=== PATIENT | male | born 1955 | race Caucasian/White ===

== ENCOUNTER → 2017-11-26 | Outpatient (CLI) | payer OTHER ==
[2017-11-26 11:42] LABS: Basophils # (auto) 0.1 uL; Eosinophils # (auto) 0.1 uL; Hemoglobin 17.7 g/dL (13.5-17.5); Monocytes # (auto) 0.8 uL
[2017-11-26 11:46] LABS: Basophils % (auto) 0.8 % (0.0-2.0); Eosinophils % (auto) 1.8 % (0.0-7.0); Hematocrit 51.3 % (41.0-53.0); Lymphocytes # (auto) 1.8 uL; Lymphocytes % (auto) 25.3 % (10.0-50.0); Mean Corpuscular Hemoglobin 31.4 pg (28.0-32.0); Mean Corpuscular Hgb Conc. 34.4 g/dL (32.0-36.0); Mean Corpuscular Volume 91.4 fL (80.0-100.0); Monocytes % (auto) 11.5 % (0.0-12.0); Neutrophils # (auto) 4.3 uL; Neutrophils % (auto) 60.6 % (37.0-80.0); Platelet Count (auto) 200 10^3/uL (140-450); Red Blood Cells 5.62 10^6/uL (4.5-5.90); Red Cell Distribution Width 13.8 % (11.8-14.3); White Blood Cell 7.1 10^3/uL (4.4-10.8)
[2017-11-26 12:07] LABS: Urine Bacteria NONE SEEN /hpf (None Seen); Urine Blood Negative /uL (Negative); Urine Mucus FEW (None Seen); Urine Specific Gravity 1.025 (1.001-1.035); Urine WBC 1 /hpf (0 - 3)
[2017-11-26 12:43] LABS: BUN/Creatinine Ratio 13.9; Bilirubin, Total 0.8 mg/dL (0.2-1.0); Calcium 9.3 mg/dL (8.5-10.1); Potassium 4.1 mmol/L (3.5-5.1); Total Protein 7.6 g/dL (6.4-8.2)
[2017-11-26 12:55] LABS: Prostate Specific Antigen 7.16 ng/mL (0.0-4.0)
== END | disposition home or self-care (01) ==
LOC: LAB 10:17
PROVIDERS: ATTEND Family Medicine
DX: I10 Essential (primary) hypertension (principal); E78.5 Hyperlipidemia, unspecified; R97.20 Elevated prostate specific antigen [PSA]; R79.89 Other specified abnormal findings of blood chemistry
CPT/HCPCS: 36415; 80053; 80061; 81001; 82306; 82607; 84153; 84154; 85025

== ENCOUNTER → 2018-03-12 | Outpatient (CLI) | payer OTHER ==
[~2018-03-12] MED LIST: AMLO5TAB2 PO; ASPI81TA27 PO; ATOR40TA52 PO; HYDR12.56 PO
== END | disposition home or self-care (01) ==
LOC: XY 08:19
PROVIDERS: ATTEND Urology
DX: C61 Malignant neoplasm of prostate (principal)
CPT/HCPCS: 78306; A9503

== ENCOUNTER → 2019-01-07 | Outpatient (CLI) | payer OTHER ==
[~2019-01-07] MED LIST changes: +AMLO5TAB13 PO; -AMLO5TAB2 PO
[2019-01-07 08:53] LABS: Basophils # (auto) 0 uL; Basophils % (auto) 0.8 % (0.0-2.0); Eosinophils # (auto) 0.1 uL; Eosinophils % (auto) 2.2 % (0.0-7.0); Hematocrit 50.5 % (41.0-53.0); Hemoglobin 17.1 g/dL (13.5-17.5); Lymphocytes % (auto) 18.2 % (10.0-50.0); Mean Corpuscular Hemoglobin 31.8 pg (28.0-32.0); Mean Corpuscular Hgb Conc. 33.9 g/dL (32.0-36.0); Mean Corpuscular Volume 93.9 fL (80.0-100.0); Monocytes # (auto) 0.6 uL; Monocytes % (auto) 10.2 % (0.0-12.0); Neutrophils % (auto) 68.6 % (37.0-80.0); Platelet Count (auto) 176 10^3/uL (140-450); Red Blood Cells 5.38 10^6/uL (4.5-5.90); Red Cell Distribution Width 13.7 % (11.8-14.3); White Blood Cell 5.8 10^3/uL (4.4-10.8)
[2019-01-07 09:09] LABS: Urine Bacteria NONE SEEN /hpf (None Seen); Urine Blood Negative /uL (Negative); Urine Mucus FEW (None Seen); Urine Specific Gravity 1.018 (1.001-1.035); Urine WBC 1 /hpf (0 - 3)
[2019-01-07 09:42] LABS: Albumin 4.2 g/dL (3.4-5.0); Calcium 9.5 mg/dL (8.5-10.1); Potassium 3.9 mmol/L (3.5-5.1)
[2019-01-07 09:46] LABS: BUN/Creatinine Ratio 14.4; Bilirubin, Total 0.7 mg/dL (0.2-1.0); Total Protein 7.5 g/dL (6.4-8.2)
[2019-01-07 14:54] LABS: Prostate Specific Antigen 0.12 ng/mL (0.0-4.0)
== END | disposition home or self-care (01) ==
LOC: LAB 08:02
PROVIDERS: ATTEND Family Medicine
DX: C61 Malignant neoplasm of prostate (principal); N40.1 Benign prostatic hyperplasia with lower urinary tract symptoms; E78.49 Other hyperlipidemia; I10 Essential (primary) hypertension
CPT/HCPCS: 36415; 80053; 80061; 81001; 82607; 83036; 84153; 84443; 85025

== ENCOUNTER → 2019-04-23 | Outpatient (CLI) | payer OTHER ==
[~2019-04-23] MED LIST changes: -AMLO5TAB13 PO; +AMLO5TAB15 PO; +ASPI-404 PO; -ASPI81TA27 PO
[2019-04-23 08:42] LABS: Basophils # (auto) 0.1 uL; Eosinophils # (auto) 0.2 uL; Eosinophils % (auto) 3.1 % (0.0-7.0); Hematocrit 42.2 % (41.0-53.0); Hemoglobin 14.5 g/dL (13.5-17.5); Lymphocytes # (auto) 1.2 uL; Lymphocytes % (auto) 22.7 % (10.0-50.0); Mean Corpuscular Hemoglobin 31.8 pg (28.0-32.0); Mean Corpuscular Hgb Conc. 34.3 g/dL (32.0-36.0); Mean Corpuscular Volume 92.6 fL (80.0-100.0); Monocytes # (auto) 0.6 uL; Monocytes % (auto) 11.7 % (0.0-12.0); Neutrophils # (auto) 3.3 uL; Neutrophils % (auto) 61.5 % (37.0-80.0); Platelet Count (auto) 176 10^3/uL (140-450); Red Blood Cells 4.56 10^6/uL (4.5-5.90); Red Cell Distribution Width 14.1 % (11.8-14.3); White Blood Cell 5.4 10^3/uL (4.4-10.8)
[2019-04-23 09:01] LABS: Albumin 3.8 g/dL (3.4-5.0); Calcium 8.8 mg/dL (8.5-10.1); Potassium 4.3 mmol/L (3.5-5.1)
[2019-04-23 09:03] LABS: Bilirubin, Total 0.5 mg/dL (0.2-1.0); Total Protein 7.3 g/dL (6.4-8.2)
== END | disposition home or self-care (01) ==
LOC: LAB 08:18
PROVIDERS: ATTEND Family Medicine
DX: C61 Malignant neoplasm of prostate (principal); E78.49 Other hyperlipidemia; I10 Essential (primary) hypertension
CPT/HCPCS: 36415; 80053; 82306; 84153; 85025

== ENCOUNTER → 2020-10-15 | Outpatient (CLI) | payer MEDICARE ==
[~2020-10-15] MED LIST changes: +AMLO-489 PO; -AMLO5TAB15 PO; -ASPI-404 PO; +ASPI-543 PO
[2020-10-15 09:28] LABS: Eosinophils # (auto) 0.2 10 ^3/uL (0-0.8); Hemoglobin 18.2 g/dL (13.5-17.5); Lymphocytes # (auto) 1.4 10 ^3/uL (0.4-5.4); Mean Corpuscular Hgb Conc. 34.7 g/dL (32.0-36.0); Monocytes # (auto) 0.7 10 ^3/uL (0-1.3); Neutrophils # (auto) 3.7 10 ^3/uL (1.6-8.6); Neutrophils % (auto) 60.7 % (37.0-80.0); Nucleated Red Blood Cells % 0.2 %; Red Cell Distribution Width 14.4 % (11.8-14.3); White Blood Cell 6.1 10^3/uL (4.4-10.8)
[2020-10-15 09:30] LABS: Basophils # (auto) 0.1 10 ^3/uL (0-0.2); Basophils % (auto) 1.2 % (0.0-2.0); Eosinophils % (auto) 2.9 % (0.0-7.0); Hematocrit 52.4 % (41.0-53.0); Lymphocytes % (auto) 23.7 % (10.0-50.0); Mean Corpuscular Hemoglobin 31.8 pg (28.0-32.0); Mean Corpuscular Volume 91.6 fL (80.0-100.0); Monocytes % (auto) 11.5 % (0.0-12.0); Platelet Count (auto) 204 10^3/uL (140-450); Red Blood Cells 5.72 10^6/uL (4.5-5.90)
[2020-10-15 10:13] LABS: Albumin 4.2 g/dL (3.4-5.0); Calcium 9.6 mg/dL (8.5-10.1); Potassium 4.7 mmol/L (3.5-5.1)
[2020-10-15 10:17] LABS: Bilirubin, Total 1.3 mg/dL (0.2-1.0)
[2020-10-15 10:19] LABS: Prostate Specific Antigen 0.14 ng/mL (0.0-4.0)
== END | disposition home or self-care (01) ==
LOC: LAB 09:09
PROVIDERS: ATTEND Family Medicine
DX: C61 Malignant neoplasm of prostate (principal); I10 Essential (primary) hypertension; E78.49 Other hyperlipidemia; E55.9 Vitamin D deficiency, unspecified
CPT/HCPCS: 36415; 80053; 80061; 82306; 82607; 84153; 85025

== ENCOUNTER → 2021-02-15 | Outpatient (CLI) | payer MEDICARE | END | disposition home or self-care (01) | LOC: LAB 10:12 | PROVIDERS: ATTEND Urology | DX: R35.1 Nocturia (principal); R35.0 Frequency of micturition; R32 Unspecified urinary incontinence | CPT/HCPCS: 84153 ==

== ENCOUNTER → 2021-06-17 | Outpatient (CLI) | payer MEDICARE ==
[2021-06-17 13:39] LABS: Albumin 3.8 g/dL (3.4-5.0); Bilirubin, Direct 0.3 mg/dL (0-0.2); Bilirubin, Total 0.8 mg/dL (0.2-1.0); Total Protein 7.1 g/dL (6.4-8.2)
== END | disposition home or self-care (01) ==
LOC: LAB 12:01
PROVIDERS: ATTEND Family Medicine
DX: R79.89 Other specified abnormal findings of blood chemistry (principal)
CPT/HCPCS: 36415; 80076; 86704; 86706; 86708; 86803; 87340

== ENCOUNTER → 2021-08-12 | Outpatient (CLI) | payer MEDICARE ==
[2021-08-12 09:51] LABS: Basophils # (auto) 0 10 ^3/uL (0-0.2); Basophils % (auto) 0.6 % (0.0-2.0); Eosinophils # (auto) 0.2 10 ^3/uL (0-0.8); Eosinophils % (auto) 2.9 % (0.0-7.0); Hematocrit 47.6 % (41.0-53.0); Hemoglobin 16.2 g/dL (13.5-17.5); Lymphocytes # (auto) 1.4 10 ^3/uL (0.4-5.4); Lymphocytes % (auto) 22.3 % (10.0-50.0); Mean Corpuscular Hemoglobin 31.5 pg (28.0-32.0); Mean Corpuscular Hgb Conc. 34.1 g/dL (32.0-36.0); Mean Corpuscular Volume 92.1 fL (80.0-100.0); Monocytes # (auto) 0.8 10 ^3/uL (0-1.3); Monocytes % (auto) 13.1 % (0.0-12.0); Neutrophils # (auto) 3.7 10 ^3/uL (1.6-8.6); Neutrophils % (auto) 61.1 % (37.0-80.0); Nucleated Red Blood Cells % 0.1 %; Red Blood Cells 5.16 10^6/uL (4.5-5.90); Red Cell Distribution Width 13.8 % (11.8-14.3); White Blood Cell 6.1 10^3/uL (4.4-10.8)
[2021-08-12 10:07] LABS: Albumin 3.9 g/dL (3.4-5.0); BUN/Creatinine Ratio 11.4; Calcium 8.9 mg/dL (8.5-10.1)
[2021-08-12 10:11] LABS: Bilirubin, Total 0.8 mg/dL (0.2-1.0); Total Protein 7.2 g/dL (6.4-8.2)
== END | disposition home or self-care (01) ==
LOC: LAB 09:00
PROVIDERS: ATTEND Student in an Organized Health Care Education/Training Program
DX: Z12.11 Encounter for screening for malignant neoplasm of colon (principal); Z00.00 Encounter for general adult medical examination without abnormal findings; E56.9 Vitamin deficiency, unspecified; E78.2 Mixed hyperlipidemia; I10 Essential (primary) hypertension; N40.1 Benign prostatic hyperplasia with lower urinary tract symptoms; Z79.899 Other long term (current) drug therapy
CPT/HCPCS: 36415; 80053; 80061; 83036; 84153; 84443; 85025

== ENCOUNTER → 2021-11-09 | Outpatient (CLI) | payer MEDICARE ==
[2021-11-09 11:09] LABS: Free T4 (Free Thyroxine) 0.91 ng/dL (0.89-1.76); Prostate Specific Antigen 0.13 ng/mL (0.0-4.0)
== END | disposition home or self-care (01) ==
LOC: LAB 10:10
PROVIDERS: ATTEND Urology
DX: N40.0 Benign prostatic hyperplasia without lower urinary tract symptoms (principal); Z79.899 Other long term (current) drug therapy
CPT/HCPCS: 36415; 84153; 84439; 84443

== ENCOUNTER → 2022-05-08 | Outpatient (CLI) | payer MEDICARE | END | disposition home or self-care (01) | LOC: LAB 12:02 | PROVIDERS: ATTEND Urology | DX: N40.0 Benign prostatic hyperplasia without lower urinary tract symptoms (principal) | CPT/HCPCS: 84153 ==

== ENCOUNTER → 2022-06-14 | Outpatient (CLI) | payer MEDICARE ==
[2022-06-14 12:12] LABS: Albumin 3.9 g/dL (3.4-5.0); Bilirubin, Total 0.8 mg/dL (0.2-1.0); Potassium 3.9 mmol/L (3.5-5.1); Total Protein 7.2 g/dL (6.4-8.2)
== END | disposition home or self-care (01) ==
LOC: LAB 10:55
PROVIDERS: ATTEND Student in an Organized Health Care Education/Training Program
DX: C61 Malignant neoplasm of prostate (principal); E78.2 Mixed hyperlipidemia; N40.0 Benign prostatic hyperplasia without lower urinary tract symptoms; I10 Essential (primary) hypertension; E03.9 Hypothyroidism, unspecified
CPT/HCPCS: 36415; 80053; 80061; 84443

== ENCOUNTER → 2022-06-26 | Outpatient (CLI) | payer MEDICARE | END | disposition home or self-care (01) | LOC: XYW 13:31 | PROVIDERS: ATTEND Student in an Organized Health Care Education/Training Program | DX: I51.7 Cardiomegaly (principal); R06.09 Other forms of dyspnea; R00.2 Palpitations | CPT/HCPCS: 93306 ==

== ENCOUNTER → 2022-08-10 | Outpatient (CLI) | payer MEDICARE | END | disposition home or self-care (01) | LOC: LAB 10:24 | PROVIDERS: ATTEND Student in an Organized Health Care Education/Training Program | DX: R94.6 Abnormal results of thyroid function studies (principal); Z12.11 Encounter for screening for malignant neoplasm of colon | CPT/HCPCS: 36415; 82274; 84443 ==

== ENCOUNTER → 2022-08-17 | Outpatient (CLI) | payer MEDICARE ==
[~2022-08-17] VITALS: Ht 30.5 cm; Wt 0.5 kg
[~2022-08-17] MED LIST changes: +TAMS1CAP25 PO; +cloNIDine HCL 0.1 MG TAB PO ONE; +hydrALAZINE HCL 20 MG/ML VL IV ONE
== END | disposition home or self-care (01) ==
LOC: XYW 08:10
PROVIDERS: ATTEND Internal Medicine
DX: R07.9 Chest pain, unspecified (principal)
CPT/HCPCS: 78452; 93017; A9500

== ENCOUNTER 2022-08-23 08:36 | Day surgery (SDC) | payer MEDICARE ==
[2022-08-22 10:45] LABS: Eosinophils # (auto) 0.1 10 ^3/uL (0-0.8); Hemoglobin 17.7 g/dL (13.5-17.5); Monocytes # (auto) 0.7 10 ^3/uL (0-1.3); White Blood Cell 6.5 10^3/uL (4.4-10.8)
[2022-08-22 10:47] LABS: Basophils # (auto) 0 10 ^3/uL (0-0.2); Basophils % (auto) 0.7 % (0.0-2.0); Eosinophils % (auto) 1.9 % (0.0-7.0); Hematocrit 51.7 % (41.0-53.0); Lymphocytes # (auto) 1.6 10 ^3/uL (0.4-5.4); Lymphocytes % (auto) 24.3 % (10.0-50.0); Mean Corpuscular Hemoglobin 31.1 pg (28.0-32.0); Mean Corpuscular Hgb Conc. 34.3 g/dL (32.0-36.0); Mean Corpuscular Volume 90.7 fL (80.0-100.0); Neutrophils % (auto) 62.1 % (37.0-80.0); Nucleated Red Blood Cells % 0.4 %; Red Cell Distribution Width 13.9 % (11.8-14.3)
[2022-08-22 10:52] LABS: INR 1.04 (0.9-1.15); Partial Thromboplastin Time 29.1 sec (24.6-33.4)
[2022-08-22 15:18] LABS: Potassium 3.8 mmol/L (3.5-5.1)
[2022-08-22 15:41] LABS: Albumin 4.5 g/dL (3.4-5.0); BUN/Creatinine Ratio 13.5; Total Protein 7.9 g/dL (6.4-8.2)
[~2022-08-23] VITALS: Ht 177.8 cm; Wt 98.0 kg
[2022-08-23] VITALS (12 sets, daily range): BP systolic 110–139; BP diastolic 67–88
[~2022-08-23 08:36] MED LIST changes: -HYDR12.56 PO; -cloNIDine HCL 0.1 MG TAB PO ONE; -hydrALAZINE HCL 20 MG/ML VL IV ONE
[2022-08-23] MEDS ORDERED: IODIXANOL 320MG/ML 100ML BTL IV ONE (10:03)
[2022-08-23] MEDS ORDERED: LIDOCAINE 2%HCL (LOCAL ANESTH.) INJ 10ml MDV ONE (10:04)
[2022-08-23] MEDS ORDERED: ANGIOMAX 250 MG VIAL IV ONE (10:05)
[2022-08-23] MEDS ORDERED: MIDAZOLAM HCL 2MG/2ML 2ml VIAL (1mg/ml) ONE (10:06)
[2022-08-23] MEDS ORDERED: fentaNYL CITRATE 100 MCG/2 ML VL ONE (10:06)
[2022-08-23] MEDS ORDERED: HEPARIN SODIUM (PORCINE) 5000 UNITS/ML 1ML VIAL ONE (10:06)
[2022-08-23] MEDS ORDERED: VERAPAMIL 2.5MG/ML INJ 2ML VIAL IV ONE (10:06)
[2022-08-23] MEDS ORDERED: SODIUM CHL 0.9% 0 ML ONE (10:07)
== END 2022-08-23 13:53 | disposition home or self-care (01) ==
LOC: CATH 08:36
PROVIDERS: ATTEND Internal Medicine
DX: R94.39 Abnormal result of other cardiovascular function study (principal); R00.2 Palpitations; R07.89 Other chest pain; Z20.822 Contact with and (suspected) exposure to COVID-19
CPT/HCPCS: 36415; 80053; 85025; 85610; 85730; 93458; C1769; C1887; C1894; J1644; J2001; J2250; J3010; Q9967; U0003; 99152

== ENCOUNTER → 2022-11-14 | Outpatient (CLI) | payer MEDICARE ==
[2022-11-14 14:53] LABS: Urine Bacteria NONE SEEN /hpf (None Seen); Urine Blood TRACE /uL (Negative); Urine Mucus FEW (None Seen); Urine Specific Gravity 1.027 (1.001-1.035); Urine WBC 13 /hpf (0 - 3)
== END | disposition home or self-care (01) ==
LOC: LAB 14:09
PROVIDERS: ATTEND Urology
DX: C61 Malignant neoplasm of prostate (principal); R35.0 Frequency of micturition; N29 Other disorders of kidney and ureter in diseases classified elsewhere
CPT/HCPCS: 81001; 84153; 87086

== ENCOUNTER → 2022-12-05 | Outpatient (CLI) | payer MEDICARE ==
[2022-12-05 14:09] LABS: Potassium 3.9 mmol/L (3.5-5.1)
[2022-12-05 14:16] LABS: BUN/Creatinine Ratio 11.4 (10.0-20.0); Calcium 8.8 mg/dL (8.5-10.1)
== END | disposition home or self-care (01) ==
LOC: LAB 13:22
PROVIDERS: ATTEND Urology
DX: C61 Malignant neoplasm of prostate (principal); R33.9 Retention of urine, unspecified
CPT/HCPCS: 36415; 80048

== ENCOUNTER → 2023-11-16 | Day surgery (SDC) | payer MEDICARE ==
[2023-11-13 11:04] LABS: Basophils # (auto) 0.1 10 ^3/uL (0-0.2); Basophils % (auto) 1.1 % (0.0-2.0); Eosinophils # (auto) 0.2 10 ^3/uL (0-0.8); Eosinophils % (auto) 3.1 % (0.0-7.0); Hematocrit 50.9 % (41.0-53.0); Hemoglobin 17.3 g/dL (13.5-17.5); Lymphocytes # (auto) 1.7 10 ^3/uL (0.4-5.4); Mean Corpuscular Hemoglobin 31.4 pg (28.0-32.0); Mean Corpuscular Volume 92.2 fL (80.0-100.0); Monocytes # (auto) 0.8 10 ^3/uL (0-1.3); Neutrophils # (auto) 4.1 10 ^3/uL (1.6-8.6); Neutrophils % (auto) 59.8 % (37.0-80.0); Nucleated Red Blood Cells % 0.1 %; Red Blood Cells 5.52 10^6/uL (4.5-5.90); White Blood Cell 6.9 10^3/uL (4.4-10.8)
[2023-11-13 11:29] LABS: INR 1.08 (0.9-1.15); Partial Thromboplastin Time 27.3 SEC (24.5-34.5); Prothrombin Time 11.4 sec (9.3-11.8)
[2023-11-13 11:48] LABS: Alanine Aminotransferase 35 U/L (7-40); Albumin 4.5 g/dL (3.2-4.8); Alkaline Phosphatase 87 U/L (46-116); Aspartate Aminotransferase 21 U/L (13-40); BUN/Creatinine Ratio 9.7 (10.0-20.0); Bilirubin, Total 1.1 mg/dL (0.2-1.0); Blood Urea Nitrogen 10 mg/dL (9-23); Calcium 9.6 mg/dL (8.7-10.4); Carbon Dioxide 27 mmol/L (20-30); Glucose 90 mg/dL (74-106); Total Protein 7.1 g/dL (5.7-8.2)
[2023-11-13 11:51] LABS: Anion Gap 5 (5-15); Chloride 106 mmol/L (98-107); Potassium 4.1 mmol/L (3.5-5.1); Sodium 138 mmol/L (136-145)
[~2023-11-16] VITALS: Ht 177.8 cm; Wt 104.3 kg
[~2023-11-16] MED LIST changes: -AMLO-489 PO; +AMLO1TAB22 PO; +METO25TA93 PO; +MIDAZOLAM HCL 5 MG/ML-1ML VIAL ONE; +diphenhdrAMINE HCL 50 MG/1 ML VL ONE; +fentaNYL CITRATE 100 MCG/2 ML VL ONE
[2023-11-16] MEDS: MIDAZOLAM HCL 5 MG/ML-1ML VIAL IV ONE (14:46)
[2023-11-16 15:10] VITALS: TEMP 98; O2SAT 100
[2023-11-16 15:40] VITALS: BP 117/82; PULSE 68; RESP 13; O2SAT 94
== END | disposition home or self-care (01) ==
LOC: GI 11:45
PROVIDERS: ATTEND Internal Medicine Gastroenterology
DX: R10.30 Lower abdominal pain, unspecified (principal); D12.3 Benign neoplasm of transverse colon; R10.84 Generalized abdominal pain; K57.30 Diverticulosis of large intestine without perforation or abscess without bleeding; I10 Essential (primary) hypertension; E78.00 Pure hypercholesterolemia, unspecified; F17.210 Nicotine dependence, cigarettes, uncomplicated; Z79.82 Long term (current) use of aspirin; Z79.899 Other long term (current) drug therapy; Z85.46 Personal history of malignant neoplasm of prostate; Z98.890 Other specified postprocedural states
CPT/HCPCS: 36415; 45385; 80053; 85025; 85610; 85730; 88305; J1200; J2250; J3010

== ENCOUNTER → 2024-02-07 | Day surgery (SDC) | payer MEDICARE ==
[2024-02-06 11:04] LABS: Urine Bacteria None Seen /hpf (None Seen)
[2024-02-06 11:07] LABS: Basophils # (auto) 0.1 10 ^3/uL (0-0.2); Basophils % (auto) 1.5 % (0.0-2.0); Eosinophils # (auto) 0.2 10 ^3/uL (0-0.8); Eosinophils % (auto) 2.6 % (0.0-7.0); Hematocrit 47.3 % (41.0-53.0); Hemoglobin 16.3 g/dL (13.5-17.5); Lymphocytes # (auto) 1.9 10 ^3/uL (0.4-5.4); Lymphocytes % (auto) 26.8 % (10.0-50.0); Mean Corpuscular Hemoglobin 31.5 pg (28.0-32.0); Mean Corpuscular Hgb Conc. 34.4 g/dL (32.0-36.0); Mean Corpuscular Volume 91.4 fL (80.0-100.0); Monocytes # (auto) 0.7 10 ^3/uL (0-1.3); Monocytes % (auto) 10.6 % (0.0-12.0); Neutrophils # (auto) 4.1 10 ^3/uL (1.6-8.6); Neutrophils % (auto) 58.5 % (37.0-80.0); Nucleated Red Blood Cells % 0.2 %; Red Blood Cells 5.18 10^6/uL (4.5-5.90); Red Cell Distribution Width 14.4 % (11.8-14.3); White Blood Cell 6.9 10^3/uL (4.4-10.8)
[2024-02-06 11:23] LABS: Urine Blood 3+ /uL (Negative); Urine Clarity Ex.Turbid (Clear); Urine Color Light-Orange (Yellow); Urine Mucus FEW (None Seen); Urine Protein, UAD 2+ (Negative); Urine Urobilinogen Normal (Negative); Urine WBC 72 /hpf (0 - 3); Urine WBC Clumps PRESENT /hpf (None Seen)
[2024-02-06 11:31] LABS: INR 1.04 (0.9-1.15); Partial Thromboplastin Time 27.3 SEC (24.5-34.5)
[2024-02-06 12:11] LABS: Alanine Aminotransferase 31 U/L (7-40); Albumin 4.4 g/dL (3.2-4.8); Alkaline Phosphatase 88 U/L (46-116); Anion Gap 6 (5-15); Aspartate Aminotransferase 15 U/L (13-40); BUN/Creatinine Ratio 10.7 (10.0-20.0); Blood Urea Nitrogen 11 mg/dL (9-23); Calcium 9.5 mg/dL (8.7-10.4); Carbon Dioxide 25 mmol/L (20-30); Chloride 108 mmol/L (98-107); Glucose 91 mg/dL (74-106); Potassium 4.1 mmol/L (3.5-5.1); Sodium 139 mmol/L (136-145)
[2024-02-06 12:12] LABS: Bilirubin, Total 1.1 mg/dL (0.2-1.0)
[~2024-02-07] VITALS: Ht 177.8 cm; Wt 98.4 kg
[~2024-02-07] MED LIST changes: +ASPI-498 OR; +CEPH250C PO; +DexAMETHasone SOD PHOS 10MG/1ML VIAL INJ ONE; +GLYCOPYRROLATE 0.2 MG/ML 1ML VIAL ONE; +HYDR1TAB97 PO; +HYDROmorphone HCL 2 MG/ML VL/or syr IV PRN; +HYDROmorphone HCL 2 MG/ML VL/or syr ONE; +KETAMINE 50mg/ML 1ml syringe ONE; +KETOROLAC TROMETH 30 MG/ML 1ML VIAL ONE; +LIDOCAINE 2% (LOCAL ANESTH.) PF 5ml SDV ONE; +MEPERIDINE HCL (50 MG/ML) 1 ML VIAL ONE; +MIDAZOLAM HCL 2MG/2ML 2ml VIAL (1mg/ml) ONE; -MIDAZOLAM HCL 5 MG/ML-1ML VIAL ONE; +ONDANSETRON HCL 4 MG/2 ML VIAL ONE; +PROPOFOL 10 MG/ML 20 ML IV ONE; +ROCURONIUM 10MG/ML 10ML VIAL IV ONE; +SUGAMMADEX 200mg/2ml Vial (100MG/ML) IV ONE; -diphenhdrAMINE HCL 50 MG/1 ML VL ONE; +ePHEDrine SULFATE 50 MG/ML AMP ONE
[2024-02-07] MEDS: EPINEPHrine HCL 1 MG/1 ML AMP ONE (10:45)
[2024-02-07 12:41] VITALS: TEMP 98.1
[2024-02-07] MEDS: ROPIVACAINE 0.5% (5MG/ML) 20ML AMPULE IJ ONE (15:16)
[2024-02-07] MEDS: BUPIVACAINE 0.5% MPF INJ 30ML SDV IJ ONE (15:16)
[2024-02-07] MEDS: ceFAZolin 2 GM/D5W50ml 50 ML IV ONE (15:16)
[2024-02-07] MEDS: LIDOCAINE 2% JELLY 11ml (GLYDO) ONE (15:17)
[2024-02-07] MEDS: ONDANSETRON HCL 4 MG/2 ML VIAL IV ONE (15:57)
[2024-02-07 16:25] VITALS: BP 108/72; PULSE 73; RESP 15; O2SAT 95
== END | disposition home or self-care (01) ==
LOC: SUR 07:10
PROVIDERS: ATTEND Orthopaedic Surgery Sports Medicine
DX: M75.121 Complete rotator cuff tear or rupture of right shoulder, not specified as traumatic (principal); S46.211A Strain of muscle, fascia and tendon of other parts of biceps, right arm, initial encounter; M65.811 Other synovitis and tenosynovitis, right shoulder; M25.811 Other specified joint disorders, right shoulder; M94.211 Chondromalacia, right shoulder; X58.XXXA Exposure to other specified factors, initial encounter; Y93.89 Activity, other specified; Y92.89 Other specified places as the place of occurrence of the external cause; Y99.8 Other external cause status; I10 Essential (primary) hypertension; F17.210 Nicotine dependence, cigarettes, uncomplicated; Z79.899 Other long term (current) drug therapy; Z85.46 Personal history of malignant neoplasm of prostate; Z98.890 Other specified postprocedural states
CPT/HCPCS: 29826; 29827; 29828; 36415; 80053; 81001; 85025; 85610; 85730; C1713; J0171; J0690; J1100; J1170; J1885; J2001; J2175; J2250; J2405; J2704; J2795; J3010; A4565; J3490

== ENCOUNTER → 2024-08-08 | Day surgery (SDC) | payer MEDICARE ==
[2024-08-05 15:33] LABS: Basophils # (auto) 0.1 10 ^3/uL (0-0.2); Basophils % (auto) 0.9 % (0.0-2.0); Eosinophils # (auto) 0.2 10 ^3/uL (0-0.8); Eosinophils % (auto) 2.1 % (0.0-7.0); Hematocrit 47.8 % (41.0-53.0); Hemoglobin 16.4 g/dL (13.5-17.5); Lymphocytes # (auto) 1.8 10 ^3/uL (0.4-5.4); Lymphocytes % (auto) 22.1 % (10.0-50.0); Mean Corpuscular Hemoglobin 31.8 pg (28.0-32.0); Mean Corpuscular Hgb Conc. 34.4 g/dL (32.0-36.0); Mean Corpuscular Volume 92.4 fL (80.0-100.0); Monocytes % (auto) 12.4 % (0.0-12.0); Neutrophils % (auto) 62.5 % (37.0-80.0); Nucleated Red Blood Cells % 0.1 %; Platelet Count (auto) 196 10^3/uL (140-450); Red Blood Cells 5.18 10^6/uL (4.5-5.90)
[2024-08-05 15:47] LABS: INR 1.03 (0.9-1.15); Partial Thromboplastin Time 27.2 SEC (24.5-34.5); Prothrombin Time 10.9 sec (9.3-11.8)
[2024-08-05 15:48] LABS: Alanine Aminotransferase 34 U/L (7-40); Albumin 4.6 g/dL (3.2-4.8); Alkaline Phosphatase 100 U/L (46-116); Anion Gap 7 (5-15); Aspartate Aminotransferase 20 U/L (13-40); BUN/Creatinine Ratio 11.3 (10.0-20.0); Bilirubin, Total 0.7 mg/dL (0.2-1.0); Blood Urea Nitrogen 12 mg/dL (9-23); Calcium 9.9 mg/dL (8.7-10.4); Carbon Dioxide 27 mmol/L (20-31); Potassium 4.2 mmol/L (3.5-5.1); Sodium 144 mmol/L (136-145); Total Protein 6.9 g/dL (5.7-8.2)
[2024-08-05 15:53] LABS: Chloride 110 mmol/L (98-107); Glucose 74 mg/dL (74-106)
[~2024-08-08] VITALS: Ht 177.8 cm; Wt 99.8 kg
[~2024-08-08] MED LIST changes: -ASPI-498 OR; -CEPH250C PO; -DexAMETHasone SOD PHOS 10MG/1ML VIAL INJ ONE; -GLYCOPYRROLATE 0.2 MG/ML 1ML VIAL ONE; -HYDR1TAB97 PO; -HYDROmorphone HCL 2 MG/ML VL/or syr IV PRN; -HYDROmorphone HCL 2 MG/ML VL/or syr ONE; -KETAMINE 50mg/ML 1ml syringe ONE; -KETOROLAC TROMETH 30 MG/ML 1ML VIAL ONE; -LIDOCAINE 2% (LOCAL ANESTH.) PF 5ml SDV ONE; -MEPERIDINE HCL (50 MG/ML) 1 ML VIAL ONE; -MIDAZOLAM HCL 2MG/2ML 2ml VIAL (1mg/ml) ONE; -ONDANSETRON HCL 4 MG/2 ML VIAL ONE; -PROPOFOL 10 MG/ML 20 ML IV ONE; -ROCURONIUM 10MG/ML 10ML VIAL IV ONE; +SODIUM CHLORIDE LOCK 10 ML ONE; -SUGAMMADEX 200mg/2ml Vial (100MG/ML) IV ONE; -ePHEDrine SULFATE 50 MG/ML AMP ONE; -fentaNYL CITRATE 100 MCG/2 ML VL ONE
[2024-08-08 10:50] VITALS: PULSE 55; RESP 17; O2SAT 98
[2024-08-08] MEDS: LIDOCAINE VISCOUS 2% 15ML UD ONE (11:13)
[2024-08-08] MEDS: fentaNYL CITRATE 100 MCG/2 ML VL ONE (11:13)
[2024-08-08] MEDS: diphenhdrAMINE HCL 50 MG/1 ML VL ONE (11:13)
[2024-08-08] MEDS: MIDAZOLAM HCL 5 MG/ML-1ML VIAL ONE (11:13)
--- NOTE | 2024-08-08 11:28 | DVHOP2 ---
Operative Report DATE OF OPERATION: 08/08/24 PROCEDURE: Upper Endoscopy with biopsy. PREOPERATIVE INDICATION: The patient is a 69 -year-old male undergoing endoscopy for chronic GERD POSTOPERATIVE DIAGNOSES: 1. 1-2 cm sliding-type hiatal hernia with grade a erosive esophagitis 2. Mild antral gastritis with some hyperemia erythema 3. Moderate duodenitis with multiple duodenal erosions and tiny ulcers in the duodenal bulb and postbulbar area PROCEDURE PERFORMED BY: Lia Leyva GI NURSE: Jaci SCOPE: Olympus videoendoscope. ASA CLASS: 2. PREOPERATIVE MEDICATIONS: Versed 2 mg, Fentanyl 75 mcg, Benadryl 50 mg I administered moderate sedation throughout this _9_ minutes procedure. An independent trained observer pushed medications at my direction, and monitored the patient's level of consciousness and physiological status throughout. PROCEDURE IN DETAIL: After obtaining an informed consent, the patient was placed on left lateral decubitus position. The patient was then sedated with the above medications. A bite block was placed between his teeth. The endoscope was then passed through the oropharynx, into the esophagus, and through the stomach and pylorus up to the second and third part of the duodenum. The endoscope was then withdrawn. The 2nd and 3rd part of the duodenum. Duodenal bulb and postbulbar area showed [id number] duodenitis There were superficial tiny ulcers and erosions. The pre-pyloric area antrum and body showed mild gastritis. On retroflexion the fundus cardia and angularis were normal. Duodenal and gas tric biopsies were obtained. The endoscope was then withdrawn into the distal esophagus where he had a 1-2 cm sliding-type hiatal hernia. Patient had slightly irregular squamocolumnar junction minimal grade a erosive esophagitis. The remaining distal and proximal esophagus and oropharynx were unremarkable The patient tolerated the procedure well without difficulty. COMPLICATIONS : None SPECIMENS: Duodenal biopsies Gastric biopsies GE junction biopsies DISPOSITION: Stable D/C to home PLAN: 1. Await for biopsy result 2. Will place pt on Protonix 40 mg p.o. daily 3. Resume GI soft diet advance as tolerated 4. Outpatient follow up with me in 4-6 weeks to review results and discuss further management 5. DC aspirin NSAIDs smoking alcohol and lifestyle modifications for GERD LIA LEYVA MD Aug 08, 2024 11:28
[2024-08-08 11:30] VITALS: PULSE 55; RESP 15; TEMP 97.5; O2SAT 99
[2024-08-08 12:00] VITALS: BP 120/73; PULSE 57; RESP 16; O2SAT 96
== END | disposition home or self-care (01) ==
LOC: GI 08:54
PROVIDERS: ATTEND Internal Medicine Gastroenterology
DX: K29.50 Unspecified chronic gastritis without bleeding (principal); K21.00 Gastro-esophageal reflux disease with esophagitis, without bleeding; K22.10 Ulcer of esophagus without bleeding; K26.9 Duodenal ulcer, unspecified as acute or chronic, without hemorrhage or perforation; K29.80 Duodenitis without bleeding; K44.9 Diaphragmatic hernia without obstruction or gangrene; F17.200 Nicotine dependence, unspecified, uncomplicated; E78.00 Pure hypercholesterolemia, unspecified; I10 Essential (primary) hypertension; Z79.899 Other long term (current) drug therapy; Z98.890 Other specified postprocedural states
CPT/HCPCS: 36415; 43239; 80053; 85025; 85610; 85730; 88305; 88312; 88342; J1200; J2250; J3010; J7030

== ENCOUNTER → 2024-09-29 | Outpatient (CLI) | payer MEDICARE ==
[~2024-09-29] MED LIST changes: -SODIUM CHLORIDE LOCK 10 ML ONE
[2024-09-29 14:26] LABS: Basophils # (auto) 0.1 10 ^3/uL (0-0.2); Basophils % (auto) 0.8 % (0.0-2.0); Eosinophils # (auto) 0.2 10 ^3/uL (0-0.8); Eosinophils % (auto) 2.2 % (0.0-7.0); Hematocrit 50.6 % (41.0-53.0); Hemoglobin 17.5 g/dL (13.5-17.5); Lymphocytes % (auto) 28.7 % (10.0-50.0); Mean Corpuscular Hemoglobin 31.8 pg (28.0-32.0); Mean Corpuscular Hgb Conc. 34.6 g/dL (32.0-36.0); Mean Corpuscular Volume 91.9 fL (80.0-100.0); Monocytes # (auto) 0.7 10 ^3/uL (0-1.3); Monocytes % (auto) 10.4 % (0.0-12.0); Neutrophils # (auto) 4.1 10 ^3/uL (1.6-8.6); Neutrophils % (auto) 57.9 % (37.0-80.0); Nucleated Red Blood Cells % 0.1 %; Platelet Count (auto) 193 10^3/uL (140-450); Red Cell Distribution Width 13.8 % (11.8-14.3); White Blood Cell 7.1 10^3/uL (4.4-10.8)
[2024-09-29 14:39] LABS: Urine Bacteria FEW /hpf (None Seen); Urine Blood 3+ /uL (Negative); Urine Clarity Turbid (Clear); Urine Color Light-Orange (Yellow); Urine Mucus FEW (None Seen); Urine Protein, UAD 1+ (Negative); Urine Specific Gravity 1.022 (1.001-1.035); Urine Squamous Epithelial Cell None Seen /hpf (<5); Urine Urobilinogen Normal (Negative); Urine WBC 23 /HPF (0-3)
[2024-09-29 14:51] LABS: Alkaline Phosphatase 90 U/L (46-116); Anion Gap 6 (5-15); Aspartate Aminotransferase 31 U/L (13-40); BUN/Creatinine Ratio 8.5 (10.0-20.0); Blood Urea Nitrogen 9 mg/dL (9-23); Calcium 9.8 mg/dL (8.7-10.4); Carbon Dioxide 28 mmol/L (20-31); Chloride 106 mmol/L (98-107); Cholesterol 118 mg/dL (< 200); Glucose 89 mg/dL (74-106); LDL Cholesterol 62 mg/dL (< 100); Potassium 4.5 mmol/L (3.5-5.1); Sodium 140 mmol/L (136-145); Total Protein 7.5 g/dL (5.7-8.2); Triglycerides 116 mg/dL (< 150)
[2024-09-29 14:55] LABS: Alanine Aminotransferase 49 U/L (7-40); Albumin 4.9 g/dL (3.2-4.8); HDL Cholesterol 37 mg/dL (40-59)
== END | disposition home or self-care (01) ==
LOC: LAB 13:52
PROVIDERS: ATTEND Nurse Practitioner
DX: I10 Essential (primary) hypertension (principal); E78.5 Hyperlipidemia, unspecified; E03.9 Hypothyroidism, unspecified; R73.9 Hyperglycemia, unspecified; Z85.46 Personal history of malignant neoplasm of prostate
CPT/HCPCS: 36415; 80053; 80061; 81001; 83036; 84153; 84443; 85025

== ENCOUNTER → 2024-10-08 | Outpatient (CLI) | payer MEDICARE | END | disposition home or self-care (01) | LOC: LAB 10:00 | PROVIDERS: ATTEND Internal Medicine Gastroenterology | DX: N39.0 Urinary tract infection, site not specified (principal) | CPT/HCPCS: 87086 ==

== ENCOUNTER 2024-10-30 07:57 | Day surgery (SDC) | payer MEDICARE ==
[2024-10-28 14:43] LABS: Urine Bacteria None Seen /hpf (None Seen)
[2024-10-28 14:47] LABS: Urine Blood 3+ /uL (Negative); Urine Clarity Turbid (Clear); Urine Color Yellow (Yellow); Urine Mucus FEW (None Seen); Urine Protein, UAD 1+ (Negative); Urine Specific Gravity 1.019 (1.001-1.035); Urine Squamous Epithelial Cell FEW /hpf (<5); Urine Urobilinogen Normal (Negative); Urine WBC 8 /HPF (0-3); Urine pH 5.5 (5.0-9.0)
[2024-10-28 14:54] LABS: Basophils # (auto) 0.1 10 ^3/uL (0-0.2); Basophils % (auto) 1.1 % (0.0-2.0); Eosinophils # (auto) 0.2 10 ^3/uL (0-0.8); Eosinophils % (auto) 2.8 % (0.0-7.0); Hematocrit 50.2 % (41.0-53.0); Hemoglobin 16.9 g/dL (13.5-17.5); Lymphocytes # (auto) 1.4 10 ^3/uL (0.4-5.4); Mean Corpuscular Hemoglobin 30.9 pg (28.0-32.0); Mean Corpuscular Hgb Conc. 33.6 g/dL (32.0-36.0); Mean Corpuscular Volume 91.9 fL (80.0-100.0); Monocytes # (auto) 0.7 10 ^3/uL (0-1.3); Monocytes % (auto) 11.6 % (0.0-12.0); Neutrophils # (auto) 3.9 10 ^3/uL (1.6-8.6); Neutrophils % (auto) 62.5 % (37.0-80.0); Nucleated Red Blood Cells % 0.1 %; Platelet Count (auto) 195 10^3/uL (140-450); Red Blood Cells 5.47 10^6/uL (4.5-5.90); Red Cell Distribution Width 13.8 % (11.8-14.3); White Blood Cell 6.3 10^3/uL (4.4-10.8)
[2024-10-28 15:10] LABS: Alanine Aminotransferase 52 U/L (7-40); Albumin 4.5 g/dL (3.2-4.8); Alkaline Phosphatase 80 U/L (46-116); Anion Gap 4 (5-15); Aspartate Aminotransferase 30 U/L (13-40); BUN/Creatinine Ratio 7.1 (10.0-20.0); Bilirubin, Total 0.6 mg/dL (0.2-1.0); Blood Urea Nitrogen 8 mg/dL (9-23); Calcium 9.5 mg/dL (8.7-10.4); Carbon Dioxide 30 mmol/L (20-31); Chloride 106 mmol/L (98-107); Glucose 91 mg/dL (74-106); INR 1.03 (0.9-1.15); Partial Thromboplastin Time 28.8 SEC (24.5-34.5); Potassium 4.4 mmol/L (3.5-5.1); Prothrombin Time 10.9 sec (9.3-11.8); Sodium 140 mmol/L (136-145); Total Protein 7.1 g/dL (5.7-8.2)
[~2024-10-30] VITALS: Ht 177.8 cm; Wt 97.5 kg
[~2024-10-30 07:57] MED LIST changes: -ASPI-543 PO; +DICY-89 PO; +PANT40TA2 PO
[2024-10-30] MEDS ORDERED: IOHEXOL 300 MG/ML 100ML BOTTLE IJ ONE (10:47)
[2024-10-30] MEDS ORDERED: SUCCINYLCHOLINE CHLORIDE 20 MG/ML 10ML VIAL IV ONE (10:51)
[2024-10-30] MEDS ORDERED: ONDANSETRON HCL 4 MG/2 ML VIAL ONE (10:52)
[2024-10-30] MEDS ORDERED: MIDAZOLAM HCL 2MG/2ML 2ml VIAL (1mg/ml) ONE (10:52)
[2024-10-30] MEDS ORDERED: LIDOCAINE 2% (LOCAL ANESTH.) PF 5ml SDV ONE (10:52)
[2024-10-30] MEDS ORDERED: fentaNYL CITRATE 100 MCG/2 ML VL ONE ×2 (10:52→11:20)
[2024-10-30] MEDS ORDERED: DexAMETHasone SOD PHOS 10MG/1ML VIAL INJ ONE (10:52)
[2024-10-30] MEDS ORDERED: PROPOFOL 10 MG/ML 20 ML IV ONE (10:52)
[2024-10-30] MEDS ORDERED: ceFAZolin 1GM VL ONE (11:11)
[2024-10-30] MEDS ORDERED: GLYCOPYRROLATE 0.2 MG/ML 1ML VIAL ONE (11:41)
--- NOTE | 2024-10-30 11:48 | DVHNC2 ---
Procedure - OPERATIVE REPORT Pre-op. Diagnosis: 1.2 cm left lower pole renal stone gross hematuria BPH history of prostate cancer status post radiation therapy Post-op. Diagnosis: bladder cancer/tumor left nephrolithiasis BPH Operation: cystoscopy with left ureteral stent placement extracorporeal shockwave lithotripsy trans urethral resection of bladder tumor Anesthesia: General Indications: Patient was found to have symptomatic Urolithiasis. Patient is here to undergo ESWL therapy. Informed Consent: The procedure was explained to the patient. It's risks include but not limited to infection, bleeding, and damage to the kidney. Patient fully understood and signed the consent. Other options such as watchful waiting, Ureteroscopy, Percutaneous surgery and open surgery were also discussed. Details of Procedure: Under satisfactory anesthesia, the patient was positioned on the lithotripsy table in the lithotomy position. Cystoscopy was performed with findings of mild urethral stricture that was dilated with the cystoscope. Prostatic urethra shows slight coaptation and high be median bar prostate. Bladder mucosa was evaluated with findings of posterior diverticulum, multiple cellules and a large 5 cm right trigone bladder tumor. The tumor was involving the right ureteric orifice. I elected to place a left ureteral stent because of the size of the stone but also because the tumor involvement of the right ureteric orifice. A five [place] by 26 cm polaris loop ureteral stent was placed over guidewire on the left side with proper position verified on fluoroscopy and cystoscopy. The tumor was then resected using the trans urethral resectoscope ( 26 [place]) using the normal saline irrigation and bipolar cautery urine. Specimen are sent to pathology for evaluation. Resectoscope was removed in entirety and a Shirley catheter was inserted. Using fluoroscopy the stone was localized. Starting at low energy levels, shockwave treatment was commenced. The energy level was gradually increased and stone was fragmented. Once the treatment was completed, patient was then taken off the lithotripsy table and sent to recovery room in stable condition. Specimens: None Complications: None Findings: Stone Laterality:Left nephrolithiasis measuring 1.2 cm Stone Location: lower pole Shocks Delivered: 2400 shocks Max Power settin Fragmentation Quality: Well large 5 cm bladder tumor noted on the right side of the trigone involving the ur eteric orifice of the right side. Complete resection was done. Notes: Shirley catheter removal on postop day 1. PILI REBOLLEDO MD Oct 30, 2024 11:48
--- NOTE | 2024-10-30 11:50 | DVHDS2 ---
New Physician D'charge PN Admitting Diagnosis Admitting Diagnosis Left renal lithiasis Gross hematuria BPH Discharge Diagnosis Large bladder tumor Operations or Procedures Trans urethral resection of the bladder tumor Cystoscopy with left ureteral stent placement Left extracorporeal shockwave lithotripsy Reason(s) For Hospitalization Surgery Hospital Course The findings of the bladder cancer was incidental. Given the intraoperative findings and the need for resection, the surgery was performed for the interest of the patient's safety without waking the patient up and obtaining another consent. Treatment Plan Discharge Complications None Condition of Discharge Fair Disposition Home Discharge Instructions Diet: Regular Activity: Light activity Activity comment: Shirley catheter care Medications: Given Follow Up Care Follow Up/Referral: Voiding trial on postop day 1. Discharge Statement: "Patient was advised to return to the ER or call 911 if any headaches, dizziness, shortness of breath, chest pain, abdominal pain, bleeding, fevers, or worsening of medical condition. Patient was counseled about treatment plan, medications, possible side effects, patientverbalized understanding. All questions were answered to the best of my ability. This discharge took greater then 30 minutes in planning, reviewing documentation, counseling the patient, and discussing with other team members." PILI REBOLLEDO MD Oct 30, 2024 11:50
[2024-10-30 12:19] VITALS: PULSE 71; RESP 19; O2SAT 98
[2024-10-30] MEDS ORDERED: FUROSEMIDE 20 MG/2 ML VIAL ONE (12:34)
[2024-10-30] MEDS: FUROSEMIDE 20 MG/2 ML VIAL IV ONE (12:36)
[2024-10-30 13:54] VITALS: BP 134/77; PULSE 66; RESP 14; O2SAT 98
== END 2024-10-30 13:55 | disposition home or self-care (01) ==
LOC: SUR 07:57
PROVIDERS: ATTEND Urology
DX: N20.0 Calculus of kidney (principal); C67.0 Malignant neoplasm of trigone of bladder; N35.919 Unspecified urethral stricture, male, unspecified site; N40.0 Benign prostatic hyperplasia without lower urinary tract symptoms; R31.0 Gross hematuria; F17.210 Nicotine dependence, cigarettes, uncomplicated; Z79.82 Long term (current) use of aspirin; Z79.899 Other long term (current) drug therapy
CPT/HCPCS: 36415; 50590; 52235; 52332; 80053; 81001; 85025; 85610; 85730; 87086; 88307; A4315; A4344; C1769; C2617; J0330; J0690; J1100; J1940; J2003; J2250; J2405; J2704; J3010; J7030

== ENCOUNTER 2024-10-31 22:07 | Inpatient (IN) | payer MEDICARE ==
[~2024-10-31] VITALS: Ht 177.8 cm; Wt 98.2 kg
[2024-10-31] MEDS: HYDROmorphone HCL 2 MG/ML VL/or syr IM ONE (23:23)
[2024-10-31] MEDS: KETOROLAC TROMETH 60MG/2ML VIAL IM ONE (23:24)
--- NOTE | 2024-10-31 23:54 | DVH ---
Exam: CT AB PEL WO CON-NO ORAL OR IV History: Right-sided flank pain Comparison Study: [facility]IDC on DOS: 06/26/22 Contrast: None TECHNIQUE: Multidetector CT of abdomen and pelvis without IV contrast. Radiation Dose Information: CT Dose: CTDI volume is 16.25 mGy. Dose-length product is 1018.75 mGy*cm FINDINGS: Lung bases are clear. Heart size is normal. There are calcifications in the coronary arteries ascending aorta is enlarged measuring 5.05 cm lower esophagus is unremarkable. Spleen and liver are grossly unremarkable. Gallbladder is normal bilateral perinephric stranding ther e is a dense nodule dense cyst arising from the posterior left renal cortex patient has nephrostomy t ube in the collecting system of the left kidney in the distal end is in the bladder there is a Shirley catheter in the bladder patient has peripheral calcifications in the posterior prostate the appendix is normal. There is no evidence for gastrointestinal obstruction. There is bilateral perinephric str anding there is right hydronephrosis and hydroureter I do not see any stones in the right ureter or r ight kidney. I see specific reason for the hydronephrosis or hydroureter there is significant strandi ng around the distal right ureter in the in the right hemipelvis. There is no evidence for gastrointe stinal obstruction. Liver is normal size. Pancreas is normal size. There is a stone in the inferior pole of the left kidney and there may be a radiopaque foreign body in the inferior pole of the left k idney could be remnant piece of the nephrostomy tube in the inferior pole of the left kidney. Signifi cant disc disease in the lower lumbosacral spine. And there appears to be a small diverticulum involv ing the posterior bladder seen on sagittal image 76 measures approximately 2.3 x 0.8 cm. IMPRESSION: 1. There is an enlarged ascending aorta. There is bilateral abnormal kidneys. Left kidney demonstrates a nodule associated with the posterior cortex which is high in density typical for cyst. Patient has a left nephrostomy tube and there is foreign body in the inferior pole of the left kidney suggesting possible remnant of prior nephrostomy tube. I would check patient's history.The bladder i s contracted has a Shirley catheter and the the end of the nephrostomy tube of the left kidney and ther e appears to be a small diverticulum involving the posterior urinary bladder. There is also a stone i n the inferior pole left kidney measuring approximately 5 mm in size. Right kidney demonstrates hydronephrosis and hydroureter but I do not see a definite obstructing lesi on involving the right kidney. Or the right ureter.
--- NOTE | 2024-11-01 01:13 | ED.PDOC ---
General HPI Comments Patient is a pleasant but obese 69-year-old male who arrives the ED today for evaluation of right-sided flank pain concerns for the past day. Patient was recently admitted and had a lithotripsy technique for a left-sided occlusive kidney stone. Patient returns today stating that the pain is now moved to his right flank and is severe. Patient has a Shirley catheter in place. Patient denies any fever nausea or vomiting. Patient was hypertensive on arrival. Chief Complaint: Flank Pain Time Seen by MD: 22:09 Reviewed notes: Nurses Notes Allergies: Coded Allergies: NO KNOWN ALLERGIES (Unverified , 02/04/18) Home Meds Reported Medications Pantoprazole Sodium Sesquihydr (Protonix) Unknown Strength Tab, PO DAILY, #30 TAB 10/28/24 Dicyclomine Hcl (Dicyclomine Hcl) Unknown Strength Cap, PO for 30 Days, MG 10/28/24 Metoprolol Succinate (Metoprolol Succinate Er) 25 Mg Tab, 25 MG PO DAILY, TAB 11/13/23 Tamsulosin HCl (Tamsulosin Hydrochloride) 0.4 Mg Cap, 0.4 MG PO DAILY, CAP 08/22/22 Amlodipine Besylate (Amlodipine Besylate) 5 Mg Tab, 5 MG PO DAILY for 30 Days, MG 02/04/18 Atorvastatin Calcium (ATORVASTATIN CALCIUM) 40 Mg Tab, 1 TAB PO DAILY, #30 TAB 5 Refills 02/04/18 Information Source: Patient Mode of Arrival: Ambulatory Severity: Severe Timing: Hours Duration: Since onset Prehospital treatment: None Onset: Spontaneous History of: Kidney stone Location: (R) Flank Past Medical History PAST MEDICAL HISTORY: Kidney Stones Surgical History (Other): Recent lithotripsy performed Family History Family History: Reviewed,noncontributory to illness, No family hx of Cancer, No family hx of DM, No family hx of Heart john, No family hx of HTN, No family hx ofKidney john, No family hx of Liver john, No family hx of Lung john, No family hx of Stroke Social History Smoker: Non-Smoker Alcohol: Denies ETOH Use Drugs: Denies Drug Use Lives In: Home Constitutional: denies: chills, diaphoresis, fatigue, fever, malaise, sweats, weakness, others EENTM: denies: blurred vision, double vision, ear bleeding, ear discharge, ear drainage, ear pain, ear ringing, eye pain, eye redness, hearing loss, mouth pa in, mouth swelling, nasal discharge, nose bleeding, nose congestion, nose pain, photophobia, tearing, throat pain, throat swelling, voice changes, others Respiratory: denies: cough, hemoptysis, orthopnea, SOB at rest, shortness of breath, SOB with excertion, stridor, wheezing, others Cardiovascular: denies: chest pain, dizzy spells, diaphoresis, Dyspnea on exertion, edema, irregular heart beat, left arm pain, lightheadedness, palpitations, PND, syncope, others Gastrointestinal: denies: abdomen distended, abdominal pain, blood streaked bowels, constipated, diarrhea, dysphagia, difficulty swallowing, hematemesis, melena, nausea, poor appetite, poor fluid intake, rectal bleeding, rectal pain, vomiting, others Genitourinary: reports: flank pain; denies: burning, dysuria, frequency, hematuria, incontinence, penile discharge, penile sore, pain, testicle pain, testicle swelling, urgency, others Neurological: denies: dizziness, fainting, headache, left sided numbness, left sided weakness, numbness, paresthesia, pre-existing deficit, right sided numbness, right sided weakness, seizure, speech problems, tingling, tremors, weakness, others Musculoskeletal: denies: back pain, gout, joint pain, joint swelling, muscle pain, muscle stiffness, neck pain, others Integumetry: denies: bruises, change in color, change in hair/nails, dryness, laceration, lesions, lumps, rash, wounds, others Allergic/Immunocompromised: denies: Difficulty Healing, Frequent Infections, Hives, Itching, others Hematologic/Lymphatic: denies: anemia, blood clots, easy bleeding, easy bruising, swollen glands, others Endocrine: denies: excessive hunger, excessive sweating, excessive thirst, excessive urination, flushing, intolerance to cold, intolerance to heat, unexplained weight gain, unexplained weight loss, others Psychiatric: denies: anxiety, bipolar disorder, depression, hopeless, panic disorder, schizophrenia, sleepless, suicidal, others Physical Exam General Appearance: Moderate Distress (Due to right-sided flank pain concerns), Obese HEENT: Normal ENT Inspection, Pharynx Normal, TMs Normal Neck: Full Range of Motion, Non-Tender, Normal, Normal Inspection Respiratory: Chest Non-Tender, Lungs Clear, No Accessory Muscle Use, No Respiratory Distress, Normal Breath Sounds Cardiovascular: No Edema, No JVD, No Murmur, No Gallop, Normal Peripheral Pulses, Regular Rate/Rhythm Breast Exam: Deferred Gastrointestinal: Other (Right-sided CVA tenderness noted extending into the right-sided lower abdomen. No edema or ecchymosis.) Genitalia: Deferred Pelvic: Deferred Rectal: Deferred Extremities: No calf tenderness, Normal capillary refill, Normal inspection, Normal range of motion, Non-tender, No pedal edema Neurologic: Alert, No Motor Deficits, Normal Affect, Normal Mood, No Sensory Deficits Cerebellar Function: Normal Reflexes: Normal Skin: Dry, Normal Color, Warm Lymphatic: No Adenopathy Was a procedure done? Was a procedure done?: No Differential Diagnosis Kidney stone (Female): Pyelonephritis, Urinary obstruction, Urolithiasis X-Ray, Labs, Meds, VS Vital Signs Date Time Temp Pulse Resp B/P (MAP) Pulse Ox O2 Delivery O2 Flow Rate FiO2 11/01/24 00:45 Room Air* 0 21 10/31/24 23:23 97 16 162/107 10/31/24 22:48 98.3 97 16 137/105 (116) 96 98.3 Current Medications Medications (Trade) Dose Ordered Sig/Adán Route Start Time Stop Time Status Last Admin Hydromorphone HCl (Dilaudid Injection) 1 mg ONCE ONCE IM 10/31/24 22:45 10/31/24 22:46 DC 10/31/24 23:23 Ketorolac Tromethamine (Toradol Injection) 30 mg ONCE ONCE IM 10/31/24 22:45 10/31/24 22:46 DC 10/31/24 23:24 X-Ray, Labs, Meds, VS Comment All studies performed the ED were evaluated by me personally. We were unable to ascertain urine as the patient has a Shirley catheter in place and therefore, a clean-catch have this time was unlikely. CT of abdomen and pelvis revealed that there was a large ascending aorta. There is bilateral abnormal kidneys. Left kidney demonstrates a nodular association with the posterior cortex which is high and density difficult for assist. Patient has a left nephrostomy tube but there was a foreign body in the inferior pole of the left kidney suggesting possible remnant of prior nephrostomy tube. The bladder is contracted and a Shirley catheter was noted. There was also a stone in the inferior pole of the left kidney measuring approximately 5 mm in size. Right kidney demonstrates hydronephrosis and hydroureter but no definitive obstruction lesion is noted. Patient will be admitted for Urology consultation and pain management. Time of 1ST Reevaluation: 01:11 Reevaluation 1ST: Improved Consultation: PCP, Urology Patient Education/Counseling: Diagnosis, Treatment Family Education/Counseling: Diagnosis, Treatment Departure 1 Departure Time of Disposition: 01:12 Impression: Primary Impression: Hydronephrosis Additional Impression: Renal injury Disposition: 09 ADMITTED INPATIENT Condition: Fair Discharged With: Self Critical Care Note Critical Care Time?: No Stability Stability form required: No Heart Score Heart Score: Heart Score Response (Comments) Value History N/A 0 EKG N/A 0 Age N/A 0 Risk Factors N/A 0 Troponin N/A 0 Total 0 JONAH HERNANDEZ PAC Nov 01, 2024 01:13
[2024-11-01 01:49] LABS: Basophils # (auto) 0.1 10 ^3/uL (0-0.2); Basophils % (auto) 0.7 % (0.0-2.0); Eosinophils # (auto) 0 10 ^3/uL (0-0.8); Eosinophils % (auto) 0.1 % (0.0-7.0); Hematocrit 52.3 % (41.0-53.0); Hemoglobin 17.8 g/dL (13.5-17.5); Lymphocytes # (auto) 0.6 10 ^3/uL (0.4-5.4); Lymphocytes % (auto) 3.8 % (10.0-50.0); Mean Corpuscular Hemoglobin 31.2 pg (28.0-32.0); Mean Corpuscular Hgb Conc. 34.1 g/dL (32.0-36.0); Mean Corpuscular Volume 91.6 fL (80.0-100.0); Monocytes # (auto) 1.6 10 ^3/uL (0-1.3); Monocytes % (auto) 9.2 % (0.0-12.0); Neutrophils # (auto) 14.7 10 ^3/uL (1.6-8.6); Neutrophils % (auto) 86.2 % (37.0-80.0); Platelet Count (auto) 180 10^3/uL (140-450); Red Blood Cells 5.71 10^6/uL (4.5-5.90); Red Cell Distribution Width 14.3 % (11.8-14.3); White Blood Cell 17.1 10^3/uL (4.4-10.8)
[2024-11-01 01:57] LABS: Chloride 99 mmol/L (98-107); Potassium 4.8 mmol/L (3.5-5.1)
[2024-11-01 01:58] LABS: Anion Gap 7 (5-15); Carbon Dioxide 28 mmol/L (20-31)
[2024-11-01 02:03] LABS: BUN/Creatinine Ratio 10.2 (10.0-20.0); Blood Urea Nitrogen 19 mg/dL (9-23)
[2024-11-01 02:04] LABS: Glucose 130 mg/dL (74-106); Sodium 134 mmol/L (136-145)
[2024-11-01 02:07] LABS: Urine Bacteria None Seen /hpf (None Seen)
[2024-11-01 02:17] LABS: Urine Blood 3+ /uL (Negative); Urine Clarity Ex.Turbid (Clear); Urine Color Brown (Yellow); Urine Mucus FEW (None Seen); Urine Protein, UAD 2+ (Negative); Urine Specific Gravity 1.021 (1.001-1.035); Urine Squamous Epithelial Cell None Seen /hpf (<5); Urine Urobilinogen Normal (Negative); Urine WBC 70 /HPF (0-3); Urine pH 5.5 (5.0-9.0)
[2024-11-01] MEDS: MORPHINE SULFATE 4 MG/ML SYR/VIAL IV ONE (03:19)
[2024-11-01] MEDS: ONDANSETRON HCL 4 MG/2 ML VIAL IV ONE (03:20)
--- NOTE | 2024-11-01 03:57 | DVHHP2 ---
History of Present Illness Reason for Visit: Flank pain History of Present Illness 69-year-old male presents for evaluation of right flank pain. Patient reports a history of kidney stones. He states that two days ago he underwent left lithotripsy with stent placement. Yesterday he developed right-sided flank pain with associated fever and chills. Denies nausea or vomiting. Other acute complaints reported. Past Medical History Dyslipidemia, hypertension, kidney stones Past Surgical History Lithotripsy with stent placement Family History Noncontributory Smoke: No ALCOHOL: none Drugs: None Lives: with Family Review of Systems Review of Systems Review of systems are currently negative otherwise addressed in HPI. Allergies: Coded Allergies: NO KNOWN ALLERGIES (Unverified , 02/04/18) Exam Vital Signs Vital Signs Date Time Temp Pulse Resp B/P (MAP) Pulse Ox O2 Delivery O2 Flow Rate FiO2 11/01/24 03:19 70 18 153/104 11/01/24 03:00 97.7 92 97.7 11/01/24 00:45 Room Air* 0 21 Exam Gen: 69-year-old male in mild distress Skin: Warm, dry, normal color and texture, no rash. HEENT: Normocephalic atraumatic, mucous membranes moist and pink. Neck: Cervical and supraclavicular nodes normal without enlargement, trachea is midline, thyroid gland is normal without masses. Pulmonary: Clear to auscultation and percussion bilaterally. Cardiac: Regular rate and rhythm. No murmur Abdomen: Soft, right CVA tenderness, nondistended, bowel sounds present all 4 quadrants, no guarding, no rigidity, no organomegaly. Extremities: No cyanosis, clubbing, no edema Neuro: Cranial nerves II through XII grossly intact, normal affect and speech, no focal motor deficits. Labs/Xrays ORDERING PHYSICIAN: JONAH HERNANDEZ PAC PROCEDURE(s): ABPL - CT AB PEL WO CON-NO ORAL OR IV REASON: Right-sided flank pain ORDER NUMBER(s): [id number], ACCESSION NUMBER(s): [id number] Exam: CT AB PEL WO CON-NO ORAL OR IV History: Right-sided flank pain Comparison Study: [facility]IDC on DOS: 06/26/22 Contrast: None TECHNIQUE: Multidetector CT of abdomen and pelvis without IV contrast. Radiation Dose Information: CT Dose: CTDI volume is 16.25 mGy. Dose-length product is 1018.75 mGy*cm FINDINGS: Lung bases are clear. Heart size is normal. There are calcifications in the coronary arteries ascending aorta is enlarged measuring 5.05 cm lower esophagus is unremarkable. Spleen and liver are grossly unremarkable. Gallbladder is normal bilateral perinephric stranding there is a dense nodule dense cyst arising from the posterior left renal cortex patient has nephrostomy tube in the collecting system of the left kidney in the distal end is in the bladder there is a Shirley catheter in the bladder patient has peripheral calcifications in the posterior prostate the appendix is normal. There is no evidence for gastrointestinal obstruction. There is bilateral perinephric stranding there is right hydronephrosis and hydroureter I do not see any stones in the right ureter or right kidney. I see specific reason for the hydronephrosis or hydroureter there is significant stranding around the distal right ureter in the in the right hemipelvis. There is no evidence for gastrointestinal obstruction. Liver is normal size. Pancreas is normal size. There is a stone in the inferior pole of the left kidney and there may be a radiopaque foreign body in the inferior pole of the left kidney could be remnant piece of the nephrostomy tube in the inferior pole of the left kidney. Significant disc disease in the lower lumbosacral spine. And there appears to be a small diverticulum involving the posterior bladder seen on sagittal image 76 measures approximately 2.3 x 0.8 cm. IMPRESSION: 1. There is an enlarged ascending aorta. There is bilateral abnormal kidneys. Left kidney demonstrates a nodule associated with the posterior cortex which is high in density typical for cyst. Patient has a left nephrostomy tube and there is foreign body in the inferior pole of the left kidney suggesting possible remnant of prior nephrostomy tube. I would check patient's history.The bladder is contracted has a Shirley catheter and the the end of the nephrostomy tube of the left kidney and there appears to be a small diverticulum involving the posterior urinary bladder. There is also a stone in the inferior pole left kidney measuring approximately 5 mm in size. Right kidney demonstrates hydronephrosis and hydroureter but I do not see a definite obstructing lesion involving the right kidney. Or the right ureter. Labs Test 11/01/24 02:06 11/01/24 01:42 Range/Units Urine Color Brown H Yellow Urine Clarity Ex.turbid Clear Urine pH 5.5 5.0-9.0 Urine Specific Umpire 1.021 1.001-1.035 Urine Protein 2+ H Negative Urine Ketones 1+ H Negative Urine Blood 3+ H Negative /uL Urine Nitrite Negative Negative Urine Bilirubin Negative Negative Urine Urobilinogen Normal Negative mg/dL Urine Leukocyte Esterase 2+ Negative /uL Urine RBC 8250 0 - 3 /hpf Urine Microscopic WBC 70 H 0-3 /HPF Urine Squamous Epithelial Cells None seen <5 /hpf Urine Bacteria None seen None Seen /hpf Urine Mucus Few None Seen Urine Glucose 1+ H Normal mg/dL White Blood Count 17.1 #H 4.4-10.8 10^3/uL Red Blood Count 5.71 4.5-5.90 10^6/uL Hemoglobin 17.8 H 13.5-17.5 g/dL Hematocrit 52.3 41.0-53.0 % Mean Corpuscular Volume 91.6 80.0-100.0 fL Mean Corpuscular Hemoglobin 31.2 28.0-32.0 pg Mean Corpuscular Hemoglobin Concent 34.1 32.0-36.0 g/dL Red Cell Distribution Width 14.3 11.8-14.3 % Platelet Count 180 140-450 10^3/uL Mean Platelet Volume 7.6 6.9-10.8 fL Neutrophils (%) (Auto) 86.2 H 37.0-80.0 % Lymphocytes (%) (Auto) 3.8 L 10.0-50.0 % Monocytes (%) (Auto) 9.2 0.0-12.0 % Eosinophils (%) (Auto) 0.1 0.0-7.0 % Basophils (%) (Auto) 0.7 0.0-2.0 % Neutrophils # (Auto) 14.7 H 1.6-8.6 10 ^3/uL Lymphocytes # (Auto) 0.6 0.4-5.4 10 ^3/uL Monocytes # (Auto) 1.6 H 0-1.3 10 ^3/uL Eosinophils # (Auto) 0 0-0.8 10 ^3/uL Basophils # (Auto) 0.1 0-0.2 10 ^3/uL Nucleated Red Blood Cells 0.0 % Sodium Level 134 #L 136-145 mmol/L Potassium Level 4.8 3.5-5.1 mmol/L Chloride Level 99 98-107 mmol/L Carbon Dioxide Level 28 20-31 mmol/L Anion Gap 7 5-15 Blood Urea Nitrogen 19 9-23 mg/dL Creatinine 1.87 H 0.700-1.30 mg/dL Glomerular Filtration Rate Calc 38 >90 mL/min BUN/Creatinine Ratio 10.2 10.0-20.0 Serum Glucose 130 H 74-106 mg/dL Calcium Level 10.0 8.7-10.4 mg/dL Assessment/Plan Assessment/Plan Assessment Acute pyelonephritis Acute kidney injury Leukocytosis Hypertension Plan Admit the patient to [facility] to the hospitalist Urology consultation Rocephin Pain management Resume home medications Continue treatment per orders. Plan discussed with: Patient Date of Service: Nov 01, 2024 Billing Provider: RADHA LINO Common Visit Codes: [id number] INP/OBS CARE (MOD) RADHA LINO Nov 01, 2024 03:57
[2024-11-01] MEDS ORDERED: MORPHINE SULFATE INJ 2 MG/ml SYRG IV PRN (04:00)
[2024-11-01] MEDS: cefTRIAXone 1GM/50ML D5W 50 ML IV SCH (04:27)
[2024-11-01 04:51] LABS: Chloride 100 mmol/L (98-107); Potassium 4.3 mmol/L (3.5-5.1)
[2024-11-01 04:52] LABS: Anion Gap 8 (5-15); Calcium 9.6 mg/dL (8.7-10.4); Carbon Dioxide 27 mmol/L (20-31)
[2024-11-01 04:57] LABS: BUN/Creatinine Ratio 11.3 (10.0-20.0); Blood Urea Nitrogen 20 mg/dL (9-23)
[2024-11-01 05:03] LABS: Glucose 117 mg/dL (74-106); Sodium 135 mmol/L (136-145)
[2024-11-01 05:21] VITALS: BP 129/88; PULSE 78; RESP 18; TEMP 97.5; O2SAT 96; O2SAT 98
[2024-11-01 08:34] VITALS: BP 131/80; PULSE 82; RESP 19; TEMP 97.8; O2SAT 93
[2024-11-01] MEDS: amLODIPine BESYLATE 5 MG TAB PO SCH (09:58)
[2024-11-01] MEDS: METOPROLOL SUCCINATE XL 50 MG TAB PO SCH (09:59)
[2024-11-01] MEDS: ONDANSETRON HCL 4 MG/2 ML VIAL IV PRN (10:00)
--- NOTE | 2024-11-01 12:08 | DVHPN2 ---
Changes from previous H/P or p: No Changes Objective Vitals Vital Signs Date Time Temp Pulse Resp B/P (MAP) Pulse Ox O2 Delivery O2 Flow Rate FiO2 11/01/24 09:59 82 131/80 11/01/24 08:34 97.8 19 93 97.8 11/01/24 08:00 Room Air* 0 21 Intake/Output Intake and Output 11/01/24 07:00 Intake Total 50 ml Output Total 200 ml Balance -150 ml Intake IV Total 50 ml Output Urine Total 200 ml Medications Current Medications Medications Dose Ordered Sig/Adán Route Start Time Stop Time Status Last Admin Dose Admin Ceftriaxone Sodium 50 ml @ 100 mls/hr DAILY@09 IV 11/01/24 04:00 11/01/24 09:57 100 MLS/HR Atorvastatin Calcium 40 mg HS PO 11/01/24 22:00 Amlodipine Besylate 5 mg DAILY PO 11/01/24 10:00 11/01/24 09:58 5 MG Metoprolol Succinate 25 mg DAILY PO 11/01/24 10:00 11/01/24 09:59 25 MG Tamsulosin HCl 0.4 mg QPM PO 11/01/24 18:00 Acetaminophen/ Hydrocodone Bitart 1 tab Q4HP PRN PO 11/01/24 04:00 Ondansetron HCl 4 mg Q4HP PRN IV 11/01/24 04:00 11/01/24 10:00 4 MG Acetaminophen 650 mg Q6HP PRN PO 11/01/24 04:00 Morphine Sulfate 2 mg Q6HPRN PRN IV 11/01/24 04:00 Laboratory Results Laboratory Tests 11/01/24 01:42 11/01/24 04:33 Chemistry Test 11/01/24 01:42 11/01/24 04:33 Calcium Level 10.0 mg/dL (8.7-10.4) 9.6 mg/dL (8.7-10.4) Urinalysis Test 11/01/24 02:06 Urine Color Brown (Yellow) H Urine Clarity Ex.turbid (Clear) Urine pH 5.5 (5.0-9.0) Urine Specific [place] 1.021 (1.001-1.035) Urine Protein 2+ (Negative) H Urine Ketones 1+ (Negative) H Urine Blood 3+ /uL (Negative) H Urine Nitrite Negative (Negative) Urine Bilirubin Negative (Negative) Urine Urobilinogen Normal mg/dL (Negative) Urine Leukocyte Esterase 2+ /uL (Negative) Urine RBC 8250 /hpf (0 - 3) Urine Microscopic WBC 70 /HPF (0-3) H Urine Squamous Epithelial Cells None seen /hpf (<5) Urine Bacteria None seen /hpf (None Seen) Urine Mucus Few (None Seen) Urine Glucose 1+ mg/dL (Normal) H Labs and/or images reviewed: Labs reviewed by me, Image(s) reviewed by me Assessment/Plan Assessment/Plan Sepsis secondary to acute urinary tract infection Status post left lithotripsy with stent placement two days ago by Dr. Woodruff, patient says he will wait for Dr. Woodruff for the consult on Sunday Right hydronephrosis 5 mm stone left kidney Acute pyelonephritis blood cultures urine cultures Rocephin Acute kidney injury Leukocytosis Hypertension: Amlodipine, metoprolol Hypercholesterolemia Plan discussed with: Patient My Orders Orders - MAGALI CASTORENA MD Procedure Category Date Status Time Blood Culture HERBERT 11/01/24 Logged 12:00 Date of Service: Nov 01, 2024 Billing Provider: MAGALI CASTORENA MD Common Visit Codes: [id number] INP/OBS CARE(HIGH) MAGALI CASTORENA MD Nov 01, 2024 12:08
[2024-11-01 13:00] VITALS: BP 137/76; PULSE 77; RESP 17; TEMP 98.5; O2SAT 98
[2024-11-01] MEDS: SODIUM CHLORIDE 0.9% 1,000 ML IV SCH (14:07)
[2024-11-01 16:49] VITALS: BP 119/82; PULSE 81; RESP 17; TEMP 98.7; O2SAT 97
[2024-11-01] MEDS: TAMSULOSIN HYDROCHLORIDE 0.4 MG CAP PO SCH (17:38)
[2024-11-01] MEDS ORDERED: DICY-89 PO (18:14)
[2024-11-01] MEDS ORDERED: ASPI325T6 PO (18:14)
[2024-11-01] MEDS ORDERED: PANT1INJ3 PO (18:14)
[2024-11-01] MEDS: HYDROcodone-ACET 5/325MG TAB PO PRN (19:27)
[2024-11-01 19:42] VITALS: O2SAT 97
[2024-11-01 21:00] VITALS: BP 122/68; PULSE 65; RESP 18; TEMP 97.5; O2SAT 97
[2024-11-01] MEDS: ATORVASTATIN 20 MG TAB PO SCH (21:22)
[2024-11-02 05:00] VITALS: BP 110/60; PULSE 80; RESP 18; TEMP 97.5; O2SAT 95
[2024-11-02 06:33] LABS: Basophils # (auto) 0 10 ^3/uL (0-0.2); Basophils % (auto) 0.2 % (0.0-2.0); Eosinophils # (auto) 0 10 ^3/uL (0-0.8); Eosinophils % (auto) 0.2 % (0.0-7.0); Hematocrit 48.7 % (41.0-53.0); Hemoglobin 16.8 g/dL (13.5-17.5); Lymphocytes # (auto) 0.9 10 ^3/uL (0.4-5.4); Lymphocytes % (auto) 9.3 % (10.0-50.0); Mean Corpuscular Hemoglobin 31.6 pg (28.0-32.0); Mean Corpuscular Hgb Conc. 34.5 g/dL (32.0-36.0); Mean Corpuscular Volume 91.6 fL (80.0-100.0); Monocytes # (auto) 1.2 10 ^3/uL (0-1.3); Neutrophils % (auto) 78.3 % (37.0-80.0); Platelet Count (auto) 152 10^3/uL (140-450); Red Blood Cells 5.31 10^6/uL (4.5-5.90); White Blood Cell 10.2 10^3/uL (4.4-10.8)
--- NOTE | 2024-11-02 08:12 | DVHPN2 ---
Reviewed: Care Plan, H&P, Medications, Previous Orders, Radiology Changes from previous H/P or p: No Changes Objective Vitals Vital Signs Date Time Temp Pulse Resp B/P (MAP) Pulse Ox O2 Delivery O2 Flow Rate FiO2 11/02/24 05:00 97.5 80 18 110/60 (77) 95 97.5 11/01/24 19:42 Room Air* 0 21 Intake/Output Intake and Output 11/02/24 07:00 Intake Total 4050 ml Output Total 2600 ml Balance 1450 ml Intake Oral 3000 ml IV Total 1050 ml Output Urine Total 2600 ml Medications Current Medications Medications Dose Ordered Sig/Adán Route Start Time Stop Time Status Last Admin Dose Admin Ceftriaxone Sodium 50 ml @ 100 mls/hr DAILY@09 IV 11/01/24 04:00 11/01/24 09:57 100 MLS/HR Atorvastatin Calcium 40 mg HS PO 11/01/24 22:00 11/01/24 21:22 40 MG Amlodipine Besylate 5 mg DAILY PO 11/01/24 10:00 11/01/24 09:58 5 MG Metoprolol Succinate 25 mg DAILY PO 11/01/24 10:00 11/01/24 09:59 25 MG Tamsulosin HCl 0.4 mg QPM PO 11/01/24 18:00 11/01/24 17:38 0.4 MG Acetaminophen/ Hydrocodone Bitart 1 tab Q4HP PRN PO 11/01/24 04:00 11/02/24 06:31 1 TAB Ondansetron HCl 4 mg Q4HP PRN IV 11/01/24 04:00 11/01/24 16:19 4 MG Acetaminophen 650 mg Q6HP PRN PO 11/01/24 04:00 Morphine Sulfate 2 mg Q6HPRN PRN IV 11/01/24 04:00 Sodium Chloride 1,000 ml @ 125 mls/hr Q8H IV 11/01/24 14:00 11/01/24 23:10 125 MLS/HR Laboratory Results Laboratory Tests 11/01/24 04:33 11/02/24 04:56 Urinalysis Test 11/01/24 02:06 Urine Color Brown (Yellow) H Urine Clarity Ex.turbid (Clear) Urine pH 5.5 (5.0-9.0) Urine Specific [place] 1.021 (1.001-1.035) Urine Protein 2+ (Negative) H Urine Ketones 1+ (Negative) H Urine Blood 3+ /uL (Negative) H Urine Nitrite Negative (Negative) Urine Bilirubin Negative (Negative) Urine Urobilinogen Normal mg/dL (Negative) Urine Leukocyte Esterase 2+ /uL (Negative) Urine RBC 8250 /hpf (0 - 3) Urine Microscopic WBC 70 /HPF (0-3) H Urine Squamous Epithelial Cells None seen /hpf (<5) Urine Bacteria None seen /hpf (None Seen) Urine Mucus Few (None Seen) Urine Glucose 1+ mg/dL (Normal) H Labs and/or images reviewed: Labs reviewed by me, Image(s) reviewed by me Assessment/Plan Assessment/Plan Sepsis secondary to acute urinary tract infection Status post left lithotripsy with stent placement two days ago by Dr. Woodruff, patient says he will wait for Dr. Woodruff for the consult on Sunday Right hydronephrosis 5 mm stone left kidney Acute pyelonephritis blood cultures urine cultures Rocephin Acute kidney injury Leukocytosis Hypertension: Amlodipine, metoprolol Hypercholesterolemia Plan discussed with: Patient My Orders Orders - MAGALI CASTORENA MD Procedure Category Date Status Time Blood Culture HERBERT 11/01/24 In Process 12:00 Sodium Chloride 0.9% PHA 11/01/24 In Process 14:00 Date of Service: Nov 02, 2024 Billing Provider: MAGALI CASTORENA MD Common Visit Codes: [id number] INP/OBS CARE(HIGH) MAGALI CASTORENA MD Nov 02, 2024 08:12
[2024-11-02 08:32] VITALS: BP 121/78; PULSE 72; RESP 19; TEMP 98.7; O2SAT 95
--- NOTE | 2024-11-02 12:58 | DVH ---
CLINICAL HISTORY: Left renal stones status post ESWL. TECHNIQUE: Single AP abdominal radiograph was obtained. COMPARISON: CT dated 10/31/2024. FINDINGS: Left ureteral stent in place. Calculus projecting over the suspected Additional adjacent o sseous fragments in the lower pole. Bowel gas partially obscures visualization. No calculus visualiz ed more distally along the course of the left ureteral stent. No right renal calculi visualized. Nons pecific bowel gas pattern. IMPRESSION: Left ureteral stent in place. Focal 7.5 mm calculus projecting over the lower pole of the left kidney with adjacent calcific fragments seen.
[2024-11-02 13:00] VITALS: BP 112/70; PULSE 67; RESP 17; TEMP 98.8; O2SAT 96
[2024-11-02] MEDS: ACETAMINOPHEN 325 MG TAB PO PRN (14:12)
[2024-11-02 16:36] VITALS: BP 143/81; PULSE 63; RESP 17; TEMP 98.9; O2SAT 95
[2024-11-02 20:00] VITALS: PULSE 88
[2024-11-02 21:00] VITALS: BP 128/70; PULSE 64; RESP 16; TEMP 98; O2SAT 94
[2024-11-03 05:00] VITALS: BP 133/74; PULSE 68; RESP 16; TEMP 98; O2SAT 100
--- NOTE | 2024-11-03 07:47 | DVHPN2 ---
Reviewed: Care Plan, H&P, Medications, Previous Orders, Radiology Changes from previous H/P or p: No Changes Objective Vitals Vital Signs Date Time Temp Pulse Resp B/P (MAP) Pulse Ox O2 Delivery O2 Flow Rate FiO2 11/03/24 05:00 98.0 68 16 133/74 (93) 100 98.0 11/02/24 20:00 Room Air* 0 21 Intake/Output Intake and Output 11/03/24 07:00 Intake Total 1950 ml Output Total 1400 ml Balance 550 ml Intake Oral 900 ml IV Total 1050 ml Output Urine Total 1400 ml # Bowel Movements 1 Medications Current Medications Medications Dose Ordered Sig/Adán Route Start Time Stop Time Status Last Admin Dose Admin Ceftriaxone Sodium 50 ml @ 100 mls/hr DAILY@09 IV 11/01/24 04:00 11/02/24 09:39 100 MLS/HR Atorvastatin Calcium 40 mg HS PO 11/01/24 22:00 11/02/24 21:41 40 MG Amlodipine Besylate 5 mg DAILY PO 11/01/24 10:00 11/02/24 09:39 5 MG Metoprolol Succinate 25 mg DAILY PO 11/01/24 10:00 11/02/24 09:40 25 MG Tamsulosin HCl 0.4 mg QPM PO 11/01/24 18:00 11/02/24 17:18 0.4 MG Acetaminophen/ Hydrocodone Bitart 1 tab Q4HP PRN PO 11/01/24 04:00 11/02/24 21:41 1 TAB Ondansetron HCl 4 mg Q4HP PRN IV 11/01/24 04:00 11/01/24 16:19 4 MG Acetaminophen 650 mg Q6HP PRN PO 11/01/24 04:00 11/02/24 14:12 650 MG Morphine Sulfate 2 mg Q6HPRN PRN IV 11/01/24 04:00 Sodium Chloride 1,000 ml @ 125 mls/hr Q8H IV 11/01/24 14:00 11/02/24 21:41 125 MLS/HR Laboratory Results Laboratory Tests 11/01/24 04:33 11/02/24 04:56 Urinalysis Test 11/01/24 02:06 Urine Color Brown (Yellow) H Urine Clarity Ex.turbid (Clear) Urine pH 5.5 (5.0-9.0) Urine Specific [place] 1.021 (1.001-1.035) Urine Protein 2+ (Negative) H Urine Ketones 1+ (Negative) H Urine Blood 3+ /uL (Negative) H Urine Nitrite Negative (Negative) Urine Bilirubin Negative (Negative) Urine Urobilinogen Normal mg/dL (Negative) Urine Leukocyte Esterase 2+ /uL (Negative) Urine RBC 8250 /hpf (0 - 3) Urine Microscopic WBC 70 /HPF (0-3) H Urine Squamous Epithelial Cells None seen /hpf (<5) Urine Bacteria None seen /hpf (None Seen) Urine Mucus Few (None Seen) Urine Glucose 1+ mg/dL (Normal) H Microbiology Microbiology Date/Time Source Procedure Growth Status 11/01/24 13:00 Blood Blood Culture - Preliminary NO GROWTH AFTER 24 HOURS OF INCUBATION. Resulted 11/01/24 02:06 Voided Urine Urine Culture - Preliminary Resulted Labs and/or images reviewed: Labs reviewed by me, Image(s) reviewed by me Assessment/Plan Assessment/Plan Sepsis secondary to acute urinary tract infection, blood cultures negative, urine cultures negative Status post left lithotripsy with stent placement two days ago by Dr. Woodruff, urology consult for Dr. Woodruff Right hydronephrosis 7.5 mm stone left kidney: Consult for Dr. Woodruff Acute pyelonephritis Rocephin Acute kidney injury Leukocytosis Hypertension: Amlodipine, metoprolol Hypercholesterolemia Plan discussed with: Patient Date of Service: Nov 03, 2024 Billing Provider: MAGALI CASTORENA MD Common Visit Codes: [id number] INP/OBS CARE(HIGH) MAGALI CASTORENA MD Nov 03, 2024 07:47
--- NOTE | 2024-11-03 08:08 | DVHINCON2 ---
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 He was admitted for severe right flank pian and right hydronephrosis. He may need right PNT with antegrade ureteral stent placement. But, his pain on the right has resolved. He has indwelling Shirley catheter due to hematuria. Past Medical History Obesity Kidney stones Past Surgical History Cystoscopy with left ureteral stent and left ESWL Family History: Patient reports no known family medical history. Allergies: Coded Allergies: NO KNOWN ALLERGIES (Unverified , 02/04/18) Home Meds Reported Medications Pantoprazole Sodium (PANTOPRAZOLE SODIUM) 40 Mg Inj, 40 MG PO DAILY, INJ 11/01/24 Dicyclomine Hcl (Dicyclomine Hcl) 10 Mg Cap, 10 MG PO QID for 30 Days, MG 11/01/24 Aspirin (Aspirin) 325 Mg Tab, 81 MG PO EOD for 30 Days, MG 11/01/24 Metoprolol Succinate (Metoprolol Succinate Er) 25 Mg Tab, 25 MG PO DAILY, TAB 11/13/23 Tamsulosin HCl (Tamsulosin Hydrochloride) 0.4 Mg Cap, 0.4 MG PO DAILY, CAP 08/22/22 Amlodipine Besylate (Amlodipine Besylate) 5 Mg Tab, 5 MG PO DAILY for 30 Days, MG 02/04/18 Atorvastatin Calcium (ATORVASTATIN CALCIUM) 40 Mg Tab, 1 TAB PO DAILY, #30 TAB 5 Refills 02/04/18 Review of Systems flankl pain Vital Signs Vital Signs Date Time Temp Pulse Resp B/P (MAP) Pulse Ox O2 Delivery O2 Flow Rate FiO2 11/03/24 05:00 98.0 68 16 133/74 (93) 100 98.0 11/02/24 20:00 Room Air* 0 21 Physical Exam Right CVAT Labs/Diagnostic Data Labs Test 11/02/24 04:56 11/01/24 04:33 11/01/24 02:06 Range/Units White Blood Count 10.2 # 4.4-10.8 10^3/uL Red Blood Count 5.31 4.5-5.90 10^6/uL Hemoglobin 16.8 13.5-17.5 g/dL Hematocrit 48.7 41.0-53.0 % Mean Corpuscular Volume 91.6 80.0-100.0 fL Mean Corpuscular Hemoglobin 31.6 28.0-32.0 pg Mean Corpuscular Hemoglobin Concent 34.5 32.0-36.0 g/dL Red Cell Distribution Width 14.0 11.8-14.3 % Platelet Count 152 140-450 10^3/uL Mean Platelet Volume 7.9 6.9-10.8 fL Neutrophils (%) (Auto) 78.3 37.0-80.0 % Lymphocytes (%) (Auto) 9.3 L 10.0-50.0 % Monocytes (%) (Auto) 12.0 0.0-12.0 % Eosinophils (%) (Auto) 0.2 0.0-7.0 % Basophils (%) (Auto) 0.2 0.0-2.0 % Neutrophils # (Auto) 8.0 1.6-8.6 10 ^3/uL Lymphocytes # (Auto) 0.9 0.4-5.4 10 ^3/uL Monocytes # (Auto) 1.2 0-1.3 10 ^3/uL Eosinophils # (Auto) 0 0-0.8 10 ^3/uL Basophils # (Auto) 0 0-0.2 10 ^3/uL Nucleated Red Blood Cells 0.0 % Sodium Level 135 L 136-145 mmol/L Potassium Level 4.3 3.5-5.1 mmol/L Chloride Level 100 98-107 mmol/L Carbon Dioxide Level 27 20-31 mmol/L Anion Gap 8 5-15 Blood Urea Nitrogen 20 9-23 mg/dL Creatinine 1.77 H 0.700-1.30 mg/dL Glomerular Filtration Rate Calc 41 >90 mL/min BUN/Creatinine Ratio 11.3 10.0-20.0 Serum Glucose 117 H 74-106 mg/dL Calcium Level 9.6 8.7-10.4 mg/dL Urine Color Brown H Yellow Urine Clarity Ex.turbid Clear Urine pH 5.5 5.0-9.0 Urine Specific [place] 1.021 1.001-1.035 Urine Protein 2+ H Negative Urine Ketones 1+ H Negative Urine Blood 3+ H Negative /uL Urine Nitrite Negative Negative Urine Bilirubin Negative Negative Urine Urobilinogen Normal Negative mg/dL Urine Leukocyte Esterase 2+ Negative /uL Urine RBC 8250 0 - 3 /hpf Urine Microscopic WBC 70 H 0-3 /HPF Urine Squamous Epithelial Cells None seen <5 /hpf Urine Bacteria None seen None Seen /hpf Urine Mucus Few None Seen Urine Glucose 1+ H Normal mg/dL Microbiology Date/Time Source Procedure Growth Status 11/01/24 13:00 Blood Blood Culture - Preliminary NO GROWTH AFTER 24 HOURS OF INCUBATION. Resulted 11/01/24 02:06 Voided Urine Urine Culture - Preliminary Resulted Assessment Right flank pain- resolved Left renal stones Left ureteral stent Bladder stones Right renal stone Plan/Recommendation Keep Shirley til urine clear Outpatient Cystolitholapaxy and left stent removal and right side ESWL TBA Plan discussed with: Patient, Other PILI REBOLLEDO MD Nov 03, 2024 08:08
[2024-11-03 09:00] VITALS: BP 118/85; PULSE 65; RESP 20; TEMP 97.8; O2SAT 94
[2024-11-03 13:00] VITALS: BP 132/76; PULSE 62; RESP 17; TEMP 97.9; O2SAT 93
[2024-11-03] MEDS ORDERED: HYDR-4902 PO (14:06)
[2024-11-03] MEDS ORDERED: CIPR-173 PO (14:06)
--- NOTE | 2024-11-03 14:11 | DVHDS2 ---
Discharge Summary Date of Admission Nov 01, 2024 at 03:49 Date of Discharge: Nov 03, 2024 Admitting Diagnosis Flank pain Wounds: None Labs/Diagnostic Data: Laboratory Results Test 11/02/24 04:56 11/01/24 04:33 11/01/24 02:06 White Blood Count 10.2 10^3/uL (4.4-10.8) Red Blood Count 5.31 10^6/uL (4.5-5.90) Hemoglobin 16.8 g/dL (13.5-17.5) Hematocrit 48.7 % (41.0-53.0) Mean Corpuscular Volume 91.6 fL (80.0-100.0) Mean Corpuscular Hemoglobin 31.6 pg (28.0-32.0) Mean Corpuscular Hemoglobin Concent 34.5 g/dL (32.0-36.0) Red Cell Distribution Width 14.0 % (11.8-14.3) Platelet Count 152 10^3/uL (140-450) Mean Platelet Volume 7.9 fL (6.9-10.8) Neutrophils (%) (Auto) 78.3 % (37.0-80.0) Lymphocytes (%) (Auto) 9.3 % (10.0-50.0) Monocytes (%) (Auto) 12.0 % (0.0-12.0) Eosinophils (%) (Auto) 0.2 % (0.0-7.0) Basophils (%) (Auto) 0.2 % (0.0-2.0) Neutrophils # (Auto) 8.0 10 ^3/uL (1.6-8.6) Lymphocytes # (Auto) 0.9 10 ^3/uL (0.4-5.4) Monocytes # (Auto) 1.2 10 ^3/uL (0-1.3) Eosinophils # (Auto) 0 10 ^3/uL (0-0.8) Basophils # (Auto) 0 10 ^3/uL (0-0.2) Nucleated Red Blood Cells 0.0 % Sodium Level 135 mmol/L (136-145) Potassium Level 4.3 mmol/L (3.5-5.1) Chloride Level 100 mmol/L (98-107) Carbon Dioxide Level 27 mmol/L (20-31) Anion Gap 8 (5-15) Blood Urea Nitrogen 20 mg/dL (9-23) Creatinine 1.77 mg/dL (0.700-1.30) Glomerular Filtration Rate Calc 41 mL/min (>90) BUN/Creatinine Ratio 11.3 (10.0-20.0) Serum Glucose 117 mg/dL (74-106) Calcium Level 9.6 mg/dL (8.7-10.4) Urine Color Brown (Yellow) Urine Clarity Ex.turbid (Clear) Urine pH 5.5 (5.0-9.0) Urine Specific [place] 1.021 (1.001-1.035) Urine Protein 2+ (Negative) Urine Ketones 1+ (Negative) Urine Blood 3+ /uL (Negative) Urine Nitrite Negative (Negative) Urine Bilirubin Negative (Negative) Urine Urobilinogen Normal mg/dL (Negative) Urine Leukocyte Esterase 2+ /uL (Negative) Urine RBC 8250 /hpf (0 - 3) Urine Microscopic WBC 70 /HPF (0-3) Urine Squamous Epithelial Cells None seen /hpf (<5) Urine Bacteria None seen /hpf (None Seen) Urine Mucus Few (None Seen) Urine Glucose 1+ mg/dL (Normal) Other Laboratory Tests 11/02/24 04:56 11/01/24 04:33 Brief Hx & Hospital Course: 69-year-old male had left lithotripsy with a stent placement by Urology Dr. Woodruff two days ago. He has a indwelling Shirley with a leg bag came in complaining of flank pain and generalized weakness found to have UTI treated with a Rocephin blood cultures negative urine cultures negative patient has a right hydronephrosis and 7.5 mm stone in the left kidney history of hypertension hypercholesterolemia. Dr. Woodruff advised with the patient could be discharged home as he has no pain now and he will follow up with him on . Patient was advised accordingly and discharge. Prescription for Cipro and [place] for UTI transmitted to the pharmacy Consults/Reason for consult Urology Dr. Perez and Operations or Procedures CT abdomen pelvis without contrast Condition at Discharge: Fair Final Diagnosis/Problems List Sepsis secondary to acute urinary tract infection, blood cultures negative, urine cultures negative Status post left lithotripsy with stent placement two days ago by Dr. Woodruff, urology consult for Dr. Woodruff Right hydronephrosis 7.5 mm stone left kidney: Consult for Dr. Woodruff Acute pyelonephritis Rocephidaniel Acute kidney injury Leukocytosis Hypertension: Amlodipine, metoprolol Hypercholesterolemia Discharge Disposition: Home Discharge Instruct/Medications Diet: Cardiac 2g Na,low cholest Activity: Light activity Follow Up/Referral: Resume all previous home medications Follow up with the Urology Dr. Woodruff 10-27-24Sun Medications: Cipro [place] Transmitted to [facility] pharmacy 35 (Time taken for discharge summary 35 minutes) Discharge Statement: "Patient was advised to return to the ER or call 911 if any headaches, dizziness, shortness of breath, chest pain, abdominal pain, bleeding, fevers, or worsening of medical condition. Patient was counseled about treatment plan, medications, possible side effects, patientverbalized understanding. All questions were answered to the best of my ability. This discharge took greater then 30 minutes in planning, reviewing documentation, counseling the patient, and discussing with other team members." ASSESSMENT ASSESSMENT Hospital Course Improved Assessment Sepsis secondary to acute urinary tract infection, blood cultures negative, urine cultures negative Status post left lithotripsy with stent placement two days ago by Dr. Woodruff, urology consult for Dr. Woodruff Right hydronephrosis 7.5 mm stone left kidney: Consult for Dr. Woodruff Acute pyelonephritis Rocephidaniel Acute kidney injury Leukocytosis Hypertension: Amlodipine, metoprolol Hypercholesterolemia Date of Service: Nov 03, 2024 Billing Provider: MAGALI CASTORENA MD Common Visit Codes: [id number] DISCH DAY >30min MAGALI CASTORENA MD Nov 03, 2024 14:11
[2024-11-03 14:56] VITALS: BP 118/85; PULSE 65; TEMP 36.6
== END 2024-11-03 16:00 | disposition home or self-care (01) | DRG 698 ==
LOC: ER 22:07 → EEVIPCON 22:07 → OVERFLOW 11-01 03:49 → CENTRAL 11-01 05:05
PROVIDERS: ADMIT Family Medicine; ATTEND Family Medicine
DX: T83.518A Infection and inflammatory reaction due to other urinary catheter, initial encounter (principal); A41.9 Sepsis, unspecified organism; N17.0 Acute kidney failure with tubular necrosis; N13.6 Pyonephrosis; E78.00 Pure hypercholesterolemia, unspecified; I10 Essential (primary) hypertension; E66.9 Obesity, unspecified; N21.0 Calculus in bladder; Z79.899 Other long term (current) drug therapy; Z87.442 Personal history of urinary calculi; Z68.30 Body mass index [BMI] 30.0-30.9, adult
CPT/HCPCS: 36415; 74018; 74176; 80048; 80053; 81001; 85025; 85610; 85730; 87040; 87086; 96365; 96375; A4344; G0378; J0330; J0690; J1100; J1885; J2003; J2250; J2405; J2704

== ENCOUNTER 2024-11-24 10:11 | Inpatient (IN) | payer MEDICARE ==
[~2024-11-24] VITALS: Ht 177.8 cm; Wt 97.7 kg
[~2024-11-24 10:11] MED LIST changes: +ASPI325T6 PO; +CIPR-173 PO; +HYDR-4902 PO; +PANT1INJ3 PO; -PANT40TA2 PO
--- NOTE | 2024-11-24 10:56 | ED.PDOC ---
General HPI Comments 69 year old male presents to the ED with a chief complaint of hematuria onset 3 days. Patient states he has been experiencing hematuria with blood clots for the past 3 days, states blood clots are the size of a dime. Patient had a tumor on bladder removed on 10/30/24, has been experiencing hematuria since. Patient also had a kidney stone, has surgery scheduled for 12/02/24 for removal. PMHx bladder and prostate cancer, HTN. Denies chest pain, dysuria, abdominal pain, shortness of breath, dizziness, fever, chills. No other symptoms or modifying factors present at this time. Chief Complaint: Urinary Time Seen by MD: 10:45 Reviewed notes: Medications, Allergies Allergies: Coded Allergies: NO KNOWN ALLERGIES (Unverified , 02/04/18) Home Meds Active Scripts Hydrocodone-Acetaminophen (Hydrocodone Bitartrate/AC 5-325 mg) 1 Tab Tab, 1 TAB PO QID PRN, #40 TAB Prov:MAGALI CASTORENA MD 11/03/24 Ciprofloxacin Hcl (Cipro) 500 Mg Tab, 1 TAB PO BID, #20 TAB Prov:MAGALI CASTORENA MD 11/03/24 Reported Medications Pantoprazole Sodium (PANTOPRAZOLE SODIUM) 40 Mg Inj, 40 MG PO DAILY, INJ 11/01/24 Dicyclomine Hcl (Dicyclomine Hcl) 10 Mg Cap, 10 MG PO QID for 30 Days, MG 11/01/24 Aspirin (Aspirin) 325 Mg Tab, 81 MG PO EOD for 30 Days, MG 11/01/24 Metoprolol Succinate (Metoprolol Succinate Er) 25 Mg Tab, 25 MG PO DAILY, TAB 11/13/23 Tamsulosin HCl (Tamsulosin Hydrochloride) 0.4 Mg Cap, 0.4 MG PO DAILY, CAP 08/22/22 Amlodipine Besylate (Amlodipine Besylate) 5 Mg Tab, 5 MG PO DAILY for 30 Days, MG 02/04/18 Atorvastatin Calcium (ATORVASTATIN CALCIUM) 40 Mg Tab, 1 TAB PO DAILY, #30 TAB 5 Refills 02/04/18 Information Source: Patient Mode of Arrival: Ambulatory Severity: Moderate Timing: Days Duration: Since onset Prehospital treatment: None Onset: Other Symptoms: Hematuria History of: Kidney stone associated signs and symptoms: Hematuria Past Medical History PAST MEDICAL HISTORY: Cancer (bladder, prostate), HTN, Kidney Stones Surgical History (Other): stent Family History Family History: Reviewed,noncontributory to illness, No family hx of Cancer, No family hx of DM, No family hx of Heart john, No family hx of HTN, No family hx ofKidney john, No family hx of Liver john, No family hx of Lung john, No family hx of Stroke Social History Smoker: Non-Smoker Alcohol: Denies ETOH Use Drugs: Denies Drug Use Lives In: Home Constitutional: denies: chills, diaphoresis, fatigue, fever, malaise, sweats, weakness, others EENTM: denies: blurred vision, double vision, ear bleeding, ear discharge, ear drainage, ear pain, ear ringing, eye pain, eye redness, hearing loss, mouth pain, mouth swelling, nasal discharge, nose bleeding, nose congestion, nose pain, photophobia, tearing, throat pain, throat swelling, voice changes, others Respiratory: denies: cough, hemoptysis, orthopnea, SOB at rest, shortness of breath, SOB with excertion, stridor, wheezing, others Cardiovascular: denies: chest pain, dizzy spells, diaphoresis, Dyspnea on exertion, edema, irregular heart beat, left arm pain, lightheadedness, palpitations, PND, syncope, others Gastrointestinal: denies: abdomen distended, abdominal pain, blood streaked bowels, constipated, diarrhea, dysphagia, difficulty swallowing, hematemesis, melena, nausea, poor appetite, poor fluid intake, rectal bleeding, rectal pain, vomiting, others Genitourinary: reports: hematuria; denies: burning, dysuria, flank pain, frequency, incontinence, penile discharge, penile sore, pain, testicle pain, testicle swelling, urgency, others Neurological: denies: dizziness, fainting, headache, left sided numbness, left sided weakness, numbness, paresthesia, pre-existing deficit, right sided numbness, right sided weakness, seizure, speech problems, tingling, tremors, weakness, others Musculoskeletal: denies: back pain, gout, joint pain, joint swelling, muscle pain, muscle stiffness, neck pain, others Integumetry: denies: bruises, change in color, change in hair/nails, dryness, laceration, lesions, lumps, rash, wounds, others Allergic/Immunocompromised: denies: Difficulty Healing, Frequent Infections, Hives, Itching, others Hematologic/Lymphatic: denies: anemia, blood clots, easy bleeding, easy bruising, swollen glands, others Endocrine: denies: excessive hunger, excessive sweating, excessive thirst, excessive urination, flushing, intolerance to cold, intolerance to heat, unexplained weight gain, unexplained weight loss, others Psychiatric: denies: anxiety, bipolar disorder, depression, hopeless, panic disorder, schizophrenia, sleepless, suicidal, others All Other Systems: Reviewed and Negative Physical Exam General Appearance: Moderate Distress, Normal HEENT: Normal ENT Inspection, Pharynx Normal, TMs Normal Neck: Full Range of Motion, Non-Tender, Normal, Normal Inspection Respiratory: Chest Non-Tender, Lungs Clear, No Accessory Muscle Use, No Respiratory Distress, Normal Breath Sounds Cardiovascular: No Edema, No JVD, No Murmur, No Gallop, Normal Peripheral Pulses, Regular Rate/Rhythm Breast Exam: Deferred Gastrointestinal: No Organomegaly, Non Tender, No Pulsatile Mass, Normal Bowel Sounds, Soft Genitalia: Deferred Pelvic: Deferred Rectal: Deferred Extremities: No calf tenderness, Normal capillary refill, Normal inspection, Normal range of motion, Non-tender, No pedal edema Musculoskeletal : Apperance: Normal Neurologic: Alert, director of tax services II-XII nml as Tested, No Motor Deficits, Normal Affect, Normal Mood, No Sensory Deficits Cerebellar Function: Normal Reflexes: Normal Skin: Dry, Normal Color, Warm Peripheral Pulses: 3+ Radial (R), 3+ Radial (L) Lymphatic: No Adenopathy Was a procedure done? Was a procedure done?: No Differential Diagnosis Kidney stone (Female): Musculoskeletal pain, Urinary obstruction, Urolithiasis X-Ray, Labs, Meds, VS Vital Signs Date Time Temp Pulse Resp B/P (MAP) Pulse Ox O2 Delivery O2 Flow Rate FiO2 11/24/24 11:39 Room Air* 0 21 11/24/24 10:33 Room Air 0 11/24/24 10:33 98.3 80 18 126/88 (101) 97 98.3 Lab Test 11/24/24 11:08 Range/Units White Blood Count 5.5 4.4-10.8 10^3/uL Red Blood Count 5.07 4.5-5.90 10^6/uL Hemoglobin 15.8 13.5-17.5 g/dL Hematocrit 45.3 41.0-53.0 % Mean Corpuscular Volume 89.5 80.0-100.0 fL Mean Corpuscular Hemoglobin 31.2 28.0-32.0 pg Mean Corpuscular Hemoglobin Concent 34.8 32.0-36.0 g/dL Red Cell Distribution Width 13.4 11.8-14.3 % Platelet Count 183 140-450 10^3/uL Mean Platelet Volume 7.7 6.9-10.8 fL Neutrophils (%) (Auto) 62.5 37.0-80.0 % Lymphocytes (%) (Auto) 21.7 10.0-50.0 % Monocytes (%) (Auto) 12.5 H 0.0-12.0 % Eosinophils (%) (Auto) 2.1 0.0-7.0 % Basophils (%) (Auto) 1.2 0.0-2.0 % Neutrophils # (Auto) 3.5 1.6-8.6 10 ^3/uL Lymphocytes # (Auto) 1.2 0.4-5.4 10 ^3/uL Monocytes # (Auto) 0.7 0-1.3 10 ^3/uL Eosinophils # (Auto) 0.1 0-0.8 10 ^3/uL Basophils # (Auto) 0.1 0-0.2 10 ^3/uL Nucleated Red Blood Cells 0.1 % Sodium Level 139 136-145 mmol/L Potassium Level 3.8 3.5-5.1 mmol/L Chloride Level 108 H 98-107 mmol/L Carbon Dioxide Level 25 20-31 mmol/L Anion Gap 6 5-15 Blood Urea Nitrogen 11 9-23 mg/dL Creatinine 1.03 0.700-1.30 mg/dL Glomerular Filtration Rate Calc 79 >90 mL/min BUN/Creatinine Ratio 10.7 10.0-20.0 Serum Glucose 95 74-106 mg/dL Calcium Level 9.8 8.7-10.4 mg/dL Current Medications Medications (Trade) Dose Ordered Sig/Adán Route Start Time Stop Time Status Last Admin Sodium Chloride 1,000 ml @ 150 mls/hr Q6H40M ONCE IV 11/24/24 11:00 11/24/24 17:39 11/24/24 11:01 Patient alert. Complaining of blood in the urine. Has been followed by Urology. Vitals stable. Waiting for lithotripsy. Establish intravenous access. Was given fluids. WBC within normal limits. Hemoglobin within normal limits. Urology consultation. Reviewed his previous visit. Explained to the patient. Continue monitoring. Time of 1ST Reevaluation: 11:15 Reevaluation 1ST: Unchanged Patient Education/Counseling: Diagnosis, Treatment, Prognosis Family Education/Counseling: No Family Present Departure 1 Departure Time of Disposition: 12:03 Impression: Primary Impression: Hematuria Qualified Codes: R31.9 - Hematuria, unspecified Additional Impressions: Kidney stone Bladder cancer Qualified Codes: C67.9 - Malignant neoplasm of bladder, unspecified Disposition: ADMITTED INPATIENT Admit to: Med Surg Condition: Guarded Critical Care Note Critical Care Time?: No Stability Stability form required: No Heart Score Heart Score: Heart Score Response (Comments) Value History N/A 0 EKG N/A 0 Age N/A 0 Risk Factors N/A 0 Troponin N/A 0 Total 0 I personally scribed for OLIMPIA WILSON MD ([email or web address]) on 11/24/24 at 10:56. Electronically submitted by Janeth Mcrae ([email or web address]). OLIMPIA WILSON MD November 24, 2024 10:56
[2024-11-24] MEDS: SODIUM CHLORIDE 0.9% 1,000 ML IV ONE (11:01)
[2024-11-24 11:36] LABS: Basophils # (auto) 0.1 10 ^3/uL (0-0.2); Basophils % (auto) 1.2 % (0.0-2.0); Eosinophils # (auto) 0.1 10 ^3/uL (0-0.8); Eosinophils % (auto) 2.1 % (0.0-7.0); Hematocrit 45.3 % (41.0-53.0); Hemoglobin 15.8 g/dL (13.5-17.5); Lymphocytes # (auto) 1.2 10 ^3/uL (0.4-5.4); Lymphocytes % (auto) 21.7 % (10.0-50.0); Mean Corpuscular Hemoglobin 31.2 pg (28.0-32.0); Mean Corpuscular Hgb Conc. 34.8 g/dL (32.0-36.0); Mean Corpuscular Volume 89.5 fL (80.0-100.0); Monocytes # (auto) 0.7 10 ^3/uL (0-1.3); Monocytes % (auto) 12.5 % (0.0-12.0); Neutrophils # (auto) 3.5 10 ^3/uL (1.6-8.6); Neutrophils % (auto) 62.5 % (37.0-80.0); Nucleated Red Blood Cells % 0.1 %; Platelet Count (auto) 183 10^3/uL (140-450); Red Blood Cells 5.07 10^6/uL (4.5-5.90); Red Cell Distribution Width 13.4 % (11.8-14.3); White Blood Cell 5.5 10^3/uL (4.4-10.8)
[2024-11-24 11:37] LABS: Anion Gap 6 (5-15); Carbon Dioxide 25 mmol/L (20-31); Potassium 3.8 mmol/L (3.5-5.1); Sodium 139 mmol/L (136-145)
[2024-11-24 11:38] LABS: Calcium 9.8 mg/dL (8.7-10.4)
[2024-11-24 11:41] LABS: Chloride 108 mmol/L (98-107)
[2024-11-24 11:43] LABS: BUN/Creatinine Ratio 10.7 (10.0-20.0); Blood Urea Nitrogen 11 mg/dL (9-23); Glucose 95 mg/dL (74-106)
[2024-11-24 14:15] LABS: Urine Bacteria FEW /hpf (None Seen); Urine Blood 3+ /uL (Negative); Urine Clarity Turbid (Clear); Urine Color Light-Red (Yellow); Urine Mucus FEW (None Seen); Urine Protein, UAD 1+ (Negative); Urine Squamous Epithelial Cell None Seen /hpf (<5); Urine Urobilinogen Normal (Negative); Urine WBC 260 /HPF (0-3); Urine WBC Clumps PRESENT /hpf (None Seen)
[2024-11-24] MEDS ORDERED: ONDANSETRON HCL 4 MG/2 ML VIAL IV PRN (16:15)
[2024-11-24] MEDS ORDERED: ACETAMINOPHEN 500 MG TAB or CAP PO PRN (16:15)
[2024-11-24] MEDS ORDERED: NITROGLYCERIN 0.4 MG SL TAB SL PRN (16:15)
--- NOTE | 2024-11-24 16:22 | DVHHP2 ---
History of Present Illness Reason for Visit: Hematuria with significant blood clots History of Present Illness The patient is a 69-year-old male presenting to the emergency room with reports of persistent increase increasing hematuria with clots. Patient reports that he recently had cystoscopy with bladder tumor removal as well as placement of left ureter and failure of lithotripsy for large left renal calculi. Patient states for the past 3-4 days, his hematuria has been intermittent, with worsening clots over the past several days. The patient does report having some left lower quadrant pain as well as slight hematuria. Significant history of the patient includes bladder cancer, prostate cancer, primary hypertension and dyslipidemia. Cardiovascular: HTN, hyperipidemia Past Surgical History: Hernia Repair, Other (Right shoulder surgery, left hand surgery) Smoke: 1 pack per day ALCOHOL: none Drugs: None Lives: with Family Review of Systems Constitutional: No: Fever, Chills, Sweats, Weakness, Malaise, Other Eyes: No: Pain, Vision change, Conjunctivae inflammation, Eyelid inflammation, Other, Redness ENT: No: Ear pain, Ear discharge, Nose pain, Nose discharge, Nose congestion, Mouth pain, Mouth swelling, Throat pain, Throat swelling, Other Respiratory: No: Cough, Dry, Shortness of breath, SOB with excertion, Wheezing, Hemoptysis, Pleuritic Pain, Sputum, Wheezing, Other Cardiovascular: No: Chest Pain, Palpitations, Orthopnea, Paroxysmal Noc. Dyspnea, Edema, Lt Headedness, Other Genitourinary: Dysuria, Hematuria Musculoskeletal: No: other, neck pain, shoulder pain, arm pain, back pain, hand pain, leg pain, foot pain Skin: No: Rash, Lesions, Jaundice, Bruising, Other Neurological: No: Weakness, Numbness, Incoordination, Change in speech, Confusion, Seizures, Other Allergies: Coded Allergies: NO KNOWN ALLERGIES (Unverified , 02/04/18) Exam Vital Signs Vital Signs Date Time Temp Pulse Resp B/P (MAP) Pulse Ox O2 Delivery O2 Flow Rate FiO2 11/24/24 16:00 57 12 114/78 (90) 96 11/24/24 12:00 98.0 98.0 11/24/24 11:39 Room Air* 0 21 General Appearance: Alert, Oriented X3, Cooperative, mild distress HEENT: Atraumatic, PERRLA Respiratory: Clear to auscultation, Normal air movement Cardiovascular: Normal S1, Normal S2 Neuro: Normal gait, Normal speech Psych/Mental Status: Mental status NL, Mood NL Labs/Xrays Labs Test 11/24/24 11:08 11/24/24 10:48 Range/Units White Blood Count 5.5 4.4-10.8 10^3/uL Red Blood Count 5.07 4.5-5.90 10^6/uL Hemoglobin 15.8 13.5-17.5 g/dL Hematocrit 45.3 41.0-53.0 % Mean Corpuscular Volume 89.5 80.0-100.0 fL Mean Corpuscular Hemoglobin 31.2 28.0-32.0 pg Mean Corpuscular Hemoglobin Concent 34.8 32.0-36.0 g/dL Red Cell Distribution Width 13.4 11.8-14.3 % Platelet Count 183 140-450 10^3/uL Mean Platelet Volume 7.7 6.9-10.8 fL Neutrophils (%) (Auto) 62.5 37.0-80.0 % Lymphocytes (%) (Auto) 21.7 10.0-50.0 % Monocytes (%) (Auto) 12.5 H 0.0-12.0 % Eosinophils (%) (Auto) 2.1 0.0-7.0 % Basophils (%) (Auto) 1.2 0.0-2.0 % Neutrophils # (Auto) 3.5 1.6-8.6 10 ^3/uL Lymphocytes # (Auto) 1.2 0.4-5.4 10 ^3/uL Monocytes # (Auto) 0.7 0-1.3 10 ^3/uL Eosinophils # (Auto) 0.1 0-0.8 10 ^3/uL Basophils # (Auto) 0.1 0-0.2 10 ^3/uL Nucleated Red Blood Cells 0.1 % Sodium Level 139 136-145 mmol/L Potassium Level 3.8 3.5-5.1 mmol/L Chloride Level 108 H 98-107 mmol/L Carbon Dioxide Level 25 20-31 mmol/L Anion Gap 6 5-15 Blood Urea Nitrogen 11 9-23 mg/dL Creatinine 1.03 0.700-1.30 mg/dL Glomerular Filtration Rate Calc 79 >90 mL/min BUN/Creatinine Ratio 10.7 10.0-20.0 Serum Glucose 95 74-106 mg/dL Calcium Level 9.8 8.7-10.4 mg/dL Urine Color Light-red Yellow Urine Clarity Turbid H Clear Urine pH 6.0 5.0-9.0 Urine Specific [place] 1.010 1.001-1.035 Urine Protein 1+ H Negative Urine Ketones Negative Negative Urine Blood 3+ H Negative /uL Urine Nitrite Negative Negative Urine Bilirubin Negative Negative Urine Urobilinogen Normal Negative mg/dL Urine Leukocyte Esterase 2+ Negative /uL Urine RBC 2053 0 - 3 /hpf Urine WBC Clumps Present None Seen /hpf Urine Microscopic WBC 260 H 0-3 /HPF Urine Squamous Epithelial Cells None seen <5 /hpf Urine Bacteria Few H None Seen /hpf Urine Mucus Few None Seen Urine Glucose Normal Normal mg/dL Assessment/Plan Assessment/Plan Impression: -hematuria -bladder cancer -primary hypertension -obstructive uropathy with left renal calculi, status post ureter placement -nicotine dependence Plan: -urology consultation -gentle IV hydration -CT scan of the abdomen and pelvis -IV antibiotic therapy: Rocephin -continue home antihypertensives -repeat labs in a.m. Total time spent with patient discussing and formulating plan of care: 35 minutes. This medical document was created using an electronic medical record system with [email or web address] dictation system. Although this document has been carefully reviewed, there may still be some phonetic and typographical errors. These areas are purely typographical due to imperfections of the software programs, and do not reflect any compromise in the patient's medical care. Plan discussed with: Patient, Other (RN) Date of Service: November 24, 2024 Billing Provider: BRUNILDA SANTO NP Common Visit Codes: [id number] INP/OBS CARE (HIGH) BRUNILDA SANTO NP November 24, 2024 16:22
[2024-11-24] MEDS: SODIUM CHLORIDE 0.9% 1,000 ML IV SCH (16:52)
[2024-11-24] MEDS: cefTRIAXone 1GM/50ML D5W 50 ML IV SCH (16:53)
--- NOTE | 2024-11-24 17:01 | DVH ---
Exam: CT CT AB PEL WO CON-NO ORAL OR IV History: Left renal calculi, left ureter stent, hematuria, bladder ca Comparison Study: CT CT AB PEL WO CON-NO ORAL OR IV on DOS: 10/31/24, [facility] on DOS: 06/26/22 TECHNIQUE: Multidetector CT of the abdomen was performed from lung bases to pubic symphysis. Imaging was performed without IV contrast. Axial, coronal and sagittal multiplanar reformats were obtained fr om the axial data set by the technologist. Radiation Dose Information: CT Dose: CTDI volume is 17.95 mGy. Dose-length product is 944.43 mGy*cm FINDINGS: Evaluation of solid organs is limited due to lack of intravenous contrast use. Findings: Lung Bases: No acute or significant lung base finding. Normal heart size. No pleural or pericardial effusion. Liver: The liver is normal in size. No focal lesions. Gallbladder and Biliary Tree: Unremarkable Spleen: Unremarkable Pancreas: The pancreas is grossly normal in appearance. Adrenal Glands: Unremarkable Kidneys: Kidneys are grossly normal without calculi or hydronephrosis. Left renal cyst. Bladder: Grossly unremarkable for degree of distention. Bowel: The stomach is grossly normal in appearance. Small bowel and colon are normal in caliber and d istribution. The appendix is not visualized; however, no secondary findings of acute appendicitis id entified. Ascites: Absent Lymphadenopathy: No mesenteric, retroperitoneal or periportal lymphadenopathy. Abdominal Wall and Mesentery: Unremarkable. Vasculature: The visualized abdominal aorta is normal in size and caliber. Evaluation of abdominal a nd pelvic vessels is limited due to lack of intravenous contrast. Pelvic Organs: Unremarkable Musculoskeletal: No aggressive focal bony lesions, acute fractures or dislocation. Soft tissues: Unremarkable IMPRESSION: 1. Left ureteral stent in place. 2. There appear to be 2 calculi around the stent proximally possible 1 around the stent distally. 3. No findings to suggest residual nephrostomy tube in the lower pole of the left kidney. Radiation optimization: All CT scans at this facility use at least one of these dose optimization tiana hniques: automated exposure control mA and/or kV adjustment per patient size (includes targeted exam s where dose is matched to clinical indication) or iterative reconstruction.
[2024-11-24 19:31] VITALS: PULSE 89; RESP 16; O2SAT 96
[2024-11-24 21:37] VITALS: BP 148/95; PULSE 68; RESP 17; TEMP 97.7; O2SAT 95
[2024-11-24 21:41] VITALS: PULSE 68; RESP 17; O2SAT 95
[2024-11-24] MEDS ORDERED: PANT40TA2 PO (21:58)
[2024-11-24] MEDS ORDERED: ASPI1TAB20 PO (21:58)
[2024-11-24] MEDS: ATORVASTATIN 20 MG TAB PO SCH (22:34)
[2024-11-25] VITALS (8 sets, daily range): BP systolic 112–142; BP diastolic 57–87; PULSE 58–97; RESP 16–19; TEMP 97.7–98.4; O2SAT 93–100
[2024-11-25 06:35] LABS: Hematocrit 44.6 % (41.0-53.0); Hemoglobin 15.3 g/dL (13.5-17.5)
[2024-11-25 06:40] LABS: INR 1.09 (0.9-1.15); Partial Thromboplastin Time 30.2 SEC (24.5-34.5); Prothrombin Time 11.5 sec (9.3-11.8)
[2024-11-25 06:55] LABS: Anion Gap 9 (5-15); Carbon Dioxide 24 mmol/L (20-31); Potassium 3.7 mmol/L (3.5-5.1); Sodium 141 mmol/L (136-145)
[2024-11-25 07:01] LABS: Glucose 75 mg/dL (74-106)
[2024-11-25 07:02] LABS: BUN/Creatinine Ratio 8.6 (10.0-20.0); Blood Urea Nitrogen 9 mg/dL (9-23)
[2024-11-25 07:05] LABS: Chloride 108 mmol/L (98-107)
--- NOTE | 2024-11-25 07:17 | DVH ---
EXAM: XR Chest, 1 View CLINICAL INDICATION: PRE OP TECHNIQUE: Frontal view of the chest. COMPARISON: None FINDINGS: LUNGS AND PLEURAL SPACES: Unremarkable. No consolidation. No pneumothorax. HEART: Unremarkable. No cardiomegaly. MEDIASTINUM: Unremarkable. Normal mediastinal contour. BONES/JOINTS: Unremarkable. No acute fracture. OTHER FINDINGS: . IMPRESSION: No acute cardiopulmonary process.
[2024-11-25] MEDS ORDERED: PROPOFOL 10 MG/ML 20 ML IV ONE (08:38)
[2024-11-25] MEDS: amLODIPine BESYLATE 5 MG TAB PO SCH (08:39)
[2024-11-25] MEDS ORDERED: fentaNYL CITRATE 100 MCG/2 ML VL ONE ×3 (08:39→11:57)
[2024-11-25] MEDS ORDERED: PHENYLEPHRINE HCL 10 MG/ML VL ONE (08:39)
[2024-11-25] MEDS: METOPROLOL SUCCINATE XL 50 MG TAB PO SCH (08:40)
[2024-11-25] MEDS: IOHEXOL 300 MG/ML 100ML BOTTLE IJ ONE (10:13)
--- NOTE | 2024-11-25 10:58 | DVHPN2 ---
Subjective Patient denies any symptoms this time Reviewed: Care Plan, H&P, Labs, Medications Changes from previous H/P or p: No Changes General: Per HPI Eyes: No Pain, No Vision change, No Conjunctivae inflammation, No Eyelid inflammation, No Other, No Redness ENT: No Ear pain, No Ear discharge, No Nose pain, No Nose discharge, No Nose congestion, No Mouth pain, No Mouth swelling, No Throat pain, No Throat swelling, No Other Cardiovascular: No Chest Pain, No Palpitations, No Orthopnea, No Paroxysmal Noc. Dyspnea, No Edema, No Lt Headedness, No Other Respiratory: No Cough, No Dry, No Shortness of breath, No SOB with excertion, No Wheezing, No Hemoptysis, No Pleuritic Pain, No Sputum, No Other Genitourinary: Dysuria, Hematuria Musculoskeletal: No other, No neck pain, No shoulder pain, No arm pain, No back pain, No hand pain, No leg pain, No foot pain Skin: No Rash, No Lesions, No Jaundice, No Bruising, No Other Objective Vitals Vital Signs Date Time Temp Pulse Resp B/P (MAP) Pulse Ox O2 Delivery O2 Flow Rate FiO2 11/25/24 09:00 98.4 67 18 142/87 (105) 95 98.4 11/25/24 08:00 Room Air* 0 21 Intake/Output Intake and Output 11/25/24 07:00 Intake Total 1575 ml Balance 1575 ml Intake Oral 0 ml IV Total 1575 ml # Voids 4 Exam Assessed in the preop. General Appearance: Alert, Oriented X3, Cooperative, No acute distress HEENT: Atraumatic, PERRLA Lungs: Clear to auscultation, Normal air movement Cardiovascular: Normal S1, Normal S2 Abdomen: Normal bowel sounds, Soft, No tenderness, No hepatospenomegaly Musculoskeletal: Normal sensory function, Normal motor function Neuro: Normal gait, Normal speech Psych/Mental Status: Mental status NL, Mood NL Medications Current Medications Medications Dose Ordered Sig/Adán Route Start Time Stop Time Status Last Admin Dose Admin Nitroglycerin 0.4 mg Q5MINP PRN SL 11/24/24 16:15 Amlodipine Besylate 5 mg DAILY PO 11/25/24 10:00 11/25/24 08:39 5 MG Atorvastatin Calcium 40 mg HS PO 11/24/24 22:00 11/24/24 22:34 40 MG Metoprolol Succinate 25 mg DAILY PO 11/25/24 10:00 11/25/24 08:40 25 MG Sodium Chloride 1,000 ml @ 75 mls/hr [id number] IV 11/24/24 16:15 11/24/24 16:52 75 MLS/HR Morphine Sulfate 1 mg Q4HPRN PRN IV 11/24/24 16:15 Acetaminophen/ Hydrocodone Bitart 1 tab Q6HPRN PRN PO 11/24/24 16:15 Acetaminophen 500 mg Q8HP PRN PO 11/24/24 16:15 Ondansetron HCl 4 mg Q6HP PRN IV 11/24/24 16:15 Ceftriaxone Sodium 50 ml @ 100 mls/hr DAILY@09 IV 11/24/24 16:30 11/25/24 08:40 100 MLS/HR Laboratory Results Laboratory Tests 11/24/24 11:08 11/25/24 05:37 Chemistry Test 11/24/24 11:08 11/25/24 05:37 Calcium Level 9.8 mg/dL (8.7-10.4) 9.0 mg/dL (8.7-10.4) Coagulation Test 11/25/24 05:37 Prothrombin Time 11.5 sec (9.3-11.8) Prothrombin Time INR 1.09 (0.9-1.15) Activated Partial Thromboplast Time 30.2 SEC (24.5-34.5) Urinalysis Test 11/24/24 10:48 Urine Color Light-red (Yellow) Urine Clarity Turbid (Clear) H Urine pH 6.0 (5.0-9.0) Urine Specific [place] 1.010 (1.001-1.035) Urine Protein 1+ (Negative) H Urine Ketones Negative (Negative) Urine Blood 3+ /uL (Negative) H Urine Nitrite Negative (Negative) Urine Bilirubin Negative (Negative) Urine Urobilinogen Normal mg/dL (Negative) Urine Leukocyte Esterase 2+ /uL (Negative) Urine RBC 2053 /hpf (0 - 3) Urine WBC Clumps Present /hpf (None Seen) Urine Microscopic WBC 260 /HPF (0-3) H Urine Squamous Epithelial Cells None seen /hpf (<5) Urine Bacteria Few /hpf (None Seen) H Urine Mucus Few (None Seen) Urine Glucose Normal mg/dL (Normal) Labs and/or images reviewed: Labs reviewed by me, Image(s) reviewed by me Assessment/Plan Assessment/Plan Impression: -hematuria -bladder cancer -primary hypertension -obstructive uropathy with left renal calculi, status post ureter placement -nicotine dependence Plan: Events: No events overnight. CT scan of the abdomen and pelvis reviewed. Patient to OR today for cystoscopy with evaluation of previous bladder tumors, as well as possible evacuation of left nephrolithiasis. -urology consultation : Recommendations appreciated -gentle IV hydration -CT scan of the abdomen and pelvis -IV antibiotic therapy: Rocephin -continue home antihypertensives -repeat labs in a.m. Total time spent with patient discussing and formulating plan of care: 35 minutes. This medical document was created using an electronic medical record system with [employer] dictation system. Although this document has been carefully reviewed, there may still be some phonetic and typographical errors. These areas are purely typographical due to imperfections of the software programs, and do not reflect any compromise in the patient's medical care. Plan discussed with: Patient, Other (RN) My Orders Orders - BRUNILDA SANTO [employer] Procedure Category Date Status Time Admit ADMIT 11/24/24 Transmitted 16:15 Nitroglycerin PHA 11/24/24 In Process Sublingual (Ntrostat 16:15 Oxygen By Nasal RT 11/24/24 Transmitted Cannula 16:15 * Urology Consult CONS 11/24/24 Transmitted 16:15 Amlodipine Tablet PHA 11/25/24 In Process (Norvasc Tablet) 10:00 Metoprolol Xl PHA 11/25/24 In Process Succinate (Toprol Xl) 10:00 Ct Ab Pel Wo Con-No CT 11/24/24 Resulted Oral Or Iv 16:15 Sodium Chloride 0.9% PHA 11/24/24 In Process 16:15 Morphine Sulfate PHA 11/24/24 In Process Injection 16:15 Hydrocodone-Acet PHA 11/24/24 In Process 5/325mg Tab ([place] 16:15 Acetaminophen Tab Or PHA 11/24/24 In Process Cap (Tylenol Tablet 16:15 Ondansetron Hcl PHA 11/24/24 In Process (Zofran) 16:15 Ceftriaxone 1gm/50ml PHA 11/24/24 In Process D5w (Rocephin) 16:30 Atorvastatin (Lipitor) PHA 11/24/24 In Process 22:00 Mrsa Screen HERBERT 11/24/24 In Process 22:33 Chest Xray 1 View XY 11/25/24 Resulted 04:12 Date of Service: November 25, 2024 Billing Provider: BRUNILDA SANTO NP Common Visit Codes: [id number] INP/OBS CARE(HIGH) BRUNILDA SANTO NP November 25, 2024 10:58
[2024-11-25] MEDS ORDERED: ePHEDrine SULFATE 50 MG/ML AMP ONE (11:22)
--- NOTE | 2024-11-25 13:42 | DVH ---
Indication: CYSTOSCOPY W/ STENT REPLACEMENT Technique: Intraoperative images of the left kidney are obtained. Comparison: 11/24/2024 FINDINGS/IMPRESSION: Intraoperative retrograde pyelogram. Placement of a ureteral stent with pigtail appearing to be in a midpole calyx. There appear to be 2 proximal ureteral filling defects suggestive of calculi. Correla te with clinical history.
--- NOTE | 2024-11-25 14:27 | DVHINCON2 ---
Date of service: November 25, 2024 Referring Physician Hospitalist Reason for Consultation Gross hematuria History of bladder cancer, low grade urothelial ca Left ureteral stent Left ureteral/renal stones s/p Left ESWL with stent placement History of Present Illness 69 year old male presents to the ED with a chief complaint of hematuria onset 3 days. Patient states he has been experiencing hematuria with blood clots for the past 3 days, states blood clots are the size of a dime. Patient had a tumor on bladder removed on 10/30/24, has been experiencing hematuria since. Patient also had a kidney stone, has surgery scheduled for 12/02/24 for removal. PMHx bladder and prostate cancer, HTN. Denies chest pain, dysuria, abdominal pain, shortness of breath, dizziness, fever, chills. No other symptoms or mo difying factors present at this time. Chief Complaint: Urinary Reviewed notes: Medications, Allergies Allergies: Coded Allergies: NO KNOWN ALLERGIES (Unverified , 02/04/18) Home Meds Active Scripts Hydrocodone-Acetaminophen (Hydrocodone Bitartrate/AC 5-325 mg) 1 Tab Tab, 1 TAB PO QID PRN, #40 TAB Prov:MAGALI CASTORENA MD 11/03/24 Ciprofloxacin Hcl (Cipro) 500 Mg Tab, 1 TAB PO BID, #20 TAB Prov:MAGALI CASTORENA MD 11/03/24 Reported Medications Pantoprazole Sodium (PANTOPRAZOLE SODIUM) 40 Mg Inj, 40 MG PO DAILY, INJ 11/01/24 Dicyclomine Hcl (Dicyclomine Hcl) 10 Mg Cap, 10 MG PO QID for 30 Days, MG 11/01/24 Aspirin (Aspirin) 325 Mg Tab, 81 MG PO EOD for 30 Days, MG 11/01/24 Metoprolol Succinate (Metoprolol Succinate Er) 25 Mg Tab, 25 MG PO DAILY, TAB 11/13/23 Tamsulosin HCl (Tamsulosin Hydrochloride) 0.4 Mg Cap, 0.4 MG PO DAILY, CAP 08/22/22 Amlodipine Besylate (Amlodipine Besylate) 5 Mg Tab, 5 MG PO DAILY for 30 Days, MG 02/04/18 Atorvastatin Calcium (ATORVASTATIN CALCIUM) 40 Mg Tab, 1 TAB PO DAILY, #30 TAB 5 Refills 02/04/18 Information Source: Patient Mode of Arrival: Ambulatory Severity: Moderate Timing: Days Duration: Since onset Prehospital treatment: None Onset: Other Symptoms: Hematuria History of: Kidney stone associated signs and symptoms: Hematuria Past Medical History Cancer (bladder, prostate), HTN, Kidney Stones Past Surgical History 10/30/24 TURBT, left ureteral stent and left ESWL 02/06/18 Prostate biopsy diagnosed with prostate cancer Family History: FH: heart attack G8 FATHER, , Age: 60 years and older FH: heart disease G8 FATHER, , Age: 60 years and older Allergies: Coded Allergies: NO KNOWN ALLERGIES (Unverified , 02/04/18) Home Meds Reported Medications Pantoprazole Sodium Sesquihydr (Protonix) 40 Mg Tab, 40 MG PO DAILY, #30 TAB 11/24/24 Aspirin (Aspir-81) 81 Mg Tab, 81 MG PO DAILY, TAB 11/24/24 Dicyclomine Hcl (Dicyclomine Hcl) 10 Mg Cap, 10 MG PO BID PRN for abdominal pain for 30 Days, MG 11/01/24 Metoprolol Succinate (Metoprolol Succinate Er) 25 Mg Tab, 25 MG PO DAILY, TAB 11/13/23 Tamsulosin HCl (Tamsulosin Hydrochloride) 0.4 Mg Cap, 0.4 MG PO DAILY, CAP 08/22/22 Amlodipine Besylate (Amlodipine Besylate) 5 Mg Tab, 5 MG PO DAILY for 30 Days, MG 02/04/18 Atorvastatin Calcium (ATORVASTATIN CALCIUM) 40 Mg Tab, 1 TAB PO DAILY, #30 TAB 5 Refills 02/04/18 Current Medications Current Medications Medications (Trade) Dose Ordered Sig/Adán Route PRN Reason Start Time Stop Time Status Last Admin Nitroglycerin (Ntrostat Sublingual) 0.4 mg Q5MINP PRN SL FOR CHEST PAIN 11/24/24 16:15 Amlodipine Besylate (Norvasc Tablet) 5 mg DAILY PO 11/25/24 10:00 11/25/24 08:39 Atorvastatin Calcium (Lipitor) 40 mg HS PO 11/24/24 22:00 11/24/24 22:34 Metoprolol Succinate (Toprol Xl) 25 mg DAILY PO 11/25/24 10:00 11/25/24 08:40 Sodium Chloride 1,000 ml @ 75 mls/hr [id number] IV 11/24/24 16:15 11/24/24 16:52 Morphine Sulfate 1 mg Q4HPRN PRN IV SEVERE PAIN (7-10 PAIN SCALE) 11/24/24 16:15 Acetaminophen/ Hydrocodone Bitart (Acme 5/325MG Tab) 1 tab Q6HPRN PRN PO MODERATE PAIN (4-6 PAIN SCALE) 11/24/24 16:15 Acetaminophen (Tylenol Tablet Or Capsule) 500 mg Q8HP PRN PO PAIN SCALE 1-3 OR TEMP>100.4 11/24/24 16:15 Ondansetron HCl (Zofran) 4 mg Q6HP PRN IV NAUSEA / VOMITING 11/24/24 16:15 Ceftriaxone Sodium 50 ml @ 100 mls/hr DAILY@09 IV 11/24/24 16:30 11/25/24 08:40 Review of Systems Constitutional: denies: chills, diaphoresis, fatigue, fever, malaise, sweats, weakness, others EENTM: denies: blurred vision, double vision, ear bleeding, ear discharge, ear drainage, ear pain, ear ringing, eye pain, eye redness, hearing loss, mouth pain, mouth swelling, nasal discharge, nose bleeding, nose congestion, nose pain, photophobia, tearing, throat pain, throat swelling, voice changes, others Respiratory: denies: cough, hemoptysis, orthopnea, SOB at rest, shortness of breath, SOB with excertion, stridor, wheezing, others Cardiovascular: denies: chest pain, dizzy spells, diaphoresis, Dyspnea on exertion, edema, irregular heart beat, left arm pain, lightheadedness, palpitations, PND, syncope, others Gastrointestinal: denies: abdomen distended, abdominal pain, blood streaked bowels, constipated, diarrhea, dysphagia, difficulty swallowing, hematemesis, melena, nausea, poor appetite, poor fluid intake, rectal bleeding, rectal pain, vomiting, others Genitourinary: reports: hematuria; denies: burning, dysuria, flank pain, frequency, incontinence, penile discharge, penile sore, pain, testicle pain, testicle swelling, urgency, others Neurological: denies: dizziness, fainting, headache, left sided numbness, left sided weakness, numbness, paresthesia, pre-existing deficit, right sided numbness, right sided weakness, seizure, speech problems, tingling, tremors, weakness, others Musculoskeletal: denies: back pain, gout, joint pain, joint swelling, muscle pain, muscle stiffness, neck pain, others Integumetry: denies: bruises, change in color, change in hair/nails, dryness, laceration, lesions, lumps, rash, wounds, others Allergic/Immunocompromised: denies: Difficulty Healing, Frequent Infections, Hives, Itching, others Hematologic/Lymphatic: denies: anemia, blood clots, easy bleeding, easy bruising, swollen glands, others Endocrine: denies: excessive hunger, excessive sweating, excessive thirst, excessive urination, flushing, intolerance to cold, intolerance to heat, unexplained weight gain, unexplained weight loss, others Psychiatric: denies: anxiety, bipolar disorder, depression, hopeless, panic disorder, schizophrenia, sleepless, suicidal, others All Other Systems: Reviewed and Negative Vital Signs Vital Signs Date Time Temp Pulse Resp B/P (MAP) Pulse Ox O2 Delivery O2 Flow Rate FiO2 11/25/24 09:00 98.4 67 18 142/87 (105) 95 98.4 11/25/24 08:00 Room Air* 0 21 Physical Exam General Appearance: Moderate Distress, Normal HEENT: Normal ENT Inspection, Pharynx Normal, TMs Normal Neck: Full Range of Motion, Non-Tender, Normal, Normal Inspection Respiratory: Chest Non-Tender, Lungs Clear, No Accessory Muscle Use, No Respiratory Distress, Normal Breath Sounds Cardiovascular: No Edema, No JVD, No Murmur, No Gallop, Normal Peripheral Pulses, Regular Rate/Rhythm Breast Exam: Deferred Gastrointestinal: No Organomegaly, Non Tender, No Pulsatile Mass, Normal Bowel Sounds, Soft Genitalia: Deferred Pelvic: Deferred Rectal: Deferred Extremities: No calf tenderness, Normal capillary refill, Normal inspection, Normal range of motion, Non-tender, No pedal edema Musculoskeletal : Apperance: Normal Neurologic: Alert, natural science curator II-XII nml as Tested, No Motor Deficits, Normal Affect, Normal Mood, No Sensory Deficits Cerebellar Function: Normal Reflexes: Normal Skin: Dry, Normal Color, Warm Peripheral Pulses: 3+ Radial (R), 3+ Radial (L) Lymphatic: No Adenopathy Labs/Diagnostic Data Labs Test 11/25/24 05:37 11/24/24 11:08 11/24/24 10:48 Range/Units Hemoglobin 15.3 13.5-17.5 g/dL Hematocrit 44.6 41.0-53.0 % Prothrombin Time 11.5 9.3-11.8 sec Prothrombin Time INR 1.09 0.9-1.15 Activated Partial Thromboplast Time 30.2 24.5-34.5 SEC Sodium Level 141 136-145 mmol/L Potassium Level 3.7 3.5-5.1 mmol/L Chloride Level 108 H 98-107 mmol/L Carbon Dioxide Level 24 20-31 mmol/L Anion Gap 9 5-15 Blood Urea Nitrogen 9 9-23 mg/dL Creatinine 1.05 0.700-1.30 mg/dL Glomerular Filtration Rate Calc 77 >90 mL/min BUN/Creatinine Ratio 8.6 L 10.0-20.0 Serum Glucose 75 74-106 mg/dL Calcium Level 9.0 8.7-10.4 mg/dL White Blood Count 5.5 4.4-10.8 10^3/uL Red Blood Count 5.07 4.5-5.90 10^6/uL Mean Corpuscular Volume 89.5 80.0-100.0 fL Mean Corpuscular Hemoglobin 31.2 28.0-32.0 pg Mean Corpuscular Hemoglobin Concent 34.8 32.0-36.0 g/dL Red Cell Distribution Width 13.4 11.8-14.3 % Platelet Count 183 140-450 10^3/uL Mean Platelet Volume 7.7 6.9-10.8 fL Neutrophils (%) (Auto) 62.5 37.0-80.0 % Lymphocytes (%) (Auto) 21.7 10.0-50.0 % Monocytes (%) (Auto) 12.5 H 0.0-12.0 % Eosinophils (%) (Auto) 2.1 0.0-7.0 % Basophils (%) (Auto) 1.2 0.0-2.0 % Neutrophils # (Auto) 3.5 1.6-8.6 10 ^3/uL Lymphocytes # (Auto) 1.2 0.4-5.4 10 ^3/uL Monocytes # (Auto) 0.7 0-1.3 10 ^3/uL Eosinophils # (Auto) 0.1 0-0.8 10 ^3/uL Basophils # (Auto) 0.1 0-0.2 10 ^3/uL Nucleated Red Blood Cells 0.1 % Urine Color Light-red Yellow Urine Clarity Turbid H Clear Urine pH 6.0 5.0-9.0 Urine Specific Sims 1.010 1.001-1.035 Urine Protein 1+ H Negative Urine Ketones Negative Negative Urine Blood 3+ H Negative /uL Urine Nitrite Negative Negative Urine Bilirubin Negative Negative Urine Urobilinogen Normal Negative mg/dL Urine Leukocyte Esterase 2+ Negative /uL Urine RBC 2053 0 - 3 /hpf Urine WBC Clumps Present None Seen /hpf Urine Microscopic WBC 260 H 0-3 /HPF Urine Squamous Epithelial Cells None seen <5 /hpf Urine Bacteria Few H None Seen /hpf Urine Mucus Few None Seen Urine Glucose Normal Normal mg/dL Microbiology Date/Time Source Procedure Growth Status 11/24/24 22:00 Nose MRSA Screen - Final Complete Assessment Left ureteral stent Left ureteral stones Gross hematuria Bladder cancer, Stage Ta Plan/Recommendation Cystoscopy with clot evacuation and fulguration Left ureteroscopic laser lithotripsy and stent exchange Plan discussed with: Patient, Other PILI REBOLLEDO MD November 25, 2024 14:27
--- NOTE | 2024-11-25 14:34 | DVH ---
C-ARM FLUOROSCOPY: PROCEDURE: Cystoscopy with stent replaced FLUOROSCOPY TIME: 49.9 sec DAP: 10.46 mgy FINDINGS: Spot intraoperative C arm radiographs demonstrating Cystoscopy with stent replaced. IMPRESSION: Please refer to surgical report for detailed findings.
--- NOTE | 2024-11-25 14:39 | DVHNC2 ---
Procedure - OPERATIVE REPORT Pre-op. Diagnosis: Hematuria with clots Bladder cancer, stage Ta Ureteral stone - Left Kidney Stone - Left s/p Ureteral stent placement - Left Post-op. Diagnosis: Same as pre-op diagnosis Operation: Cystoscopy, Clot Evacuation Cystoscopy with fulguration Cystoscopy with left ureteral stent removal Left ureteroscopy/pyeloscopy, laser lithotripsy Cystoscopy with Left ureteral stent placement Anesthesia: General Indications: The indications, risks, complications, alternatives and benefits of cystoscopy with clot evacuation and fulguration, left ureteroscopic laser lithotripsy were discussed. All questions were encouraged and answered. Patient is aware of risks/complications including but not limited to infection, bleeding, persistent pain, possible ureteral injury requiring additional surgical management. Details of Procedure: Patient was brought to OR and placed in supine position in the OR table. Anesthesia was induced and patient was placed in lithotomy position, prepped and draped in sterile surgical fashion. Using a 26 Fr Resectoscope the bladder was entered with the finding of large amount of clots, that were irrigated. The bladder showed stone fragements and residual bladder tumors on right trigone. Tumor resection was performed with 26F resectoscope sheath and loop. There were bleeding from left posterior large diverticulum and area was fulgurated. Both ureters were identified. The left ureteral stent was removed with grasper. Resectoscope was removed when complete evacuation was accomplished. Next, 21 F Cystoscope was used to access the urethra and bladder.. A sensor tip guide wire was advanced into the left kidney. Navigator ureteral sheath was placed. Now the flexible ureteroscope was advanced until the stones were visualized. There were stones located in the midureter and proximal ureter. Now using a 200 micron laser fiber the stone was blasted into small fragments. Now using a basket the fragments were removed and passed to be sent to pathology. At this point the ureteroscope was advanced into the kidney and the kidney was examined and small stone fragments were visualized and removed with a basket. No further stones were seen in the kidney. The ureter was examined and no furher stones were seen. At this point the cystoscope was advanced over the wire into the bladder. Now a 5 Fr x [address] ureteral stent was advanced under direct visualization through the left ureteral orifice into the kidney. Good curl of the stent was seen in the bladder. [address] Shirley catheter was placed for CBI. Patient was placed in supine position in the OR table. Anesthesia was reversed, patient was extubated and trasnferred awake and in stable conditions to recovery room. Specimens: Blood clots Old stent, left Left ureteral stone, left kidney stone Complications: None None Findings: As above EBL < 100 ml Left ureteral stones Left kidney stones Notes: 5 Fr x 26 cm JJ ureteral stent - Left PILI REOBLLEDO MD November 25, 2024 14:39
--- NOTE | 2024-11-25 15:15 | DVH ---
Date: 11/25/2024 02:49 PM Examination: XY KUB ABDOMEN SINGLE VIEW History: stent placement Comparison: XY KUB ABDOMEN SINGLE VIEW on DOS: 11/25/24, XY KUB ABDOMEN SINGLE VIEW on DOS: 11/02/24 TECHNIQUE: Frontal views of the abdomen was obtained. FINDINGS: Bowel gas pattern is unremarkable. The lung bases are unremarkable. No acute osseous abnormality identified. There is mild osteopenia. There is a left-sided double-J ureteral stent in place. IMPRESSION: 1. Nonobstructive bowel gas pattern. 2. Left-sided double-J ureteral stent in place
[2024-11-25] MEDS: MORPHINE SULFATE INJ 2 MG/ml SYRG IV PRN (15:33)
[2024-11-25] MEDS: HYDROcodone-ACET 5/325MG TAB PO PRN (21:31)
[2024-11-26] VITALS (7 sets, daily range): BP systolic 99–128; BP diastolic 55–81; PULSE 67–85; RESP 14–18; TEMP 36.4; O2SAT 94–97
[2024-11-26 06:50] LABS: Basophils # (auto) 0 10 ^3/uL (0-0.2); Basophils % (auto) 0.5 % (0.0-2.0); Eosinophils # (auto) 0 10 ^3/uL (0-0.8); Eosinophils % (auto) 0.4 % (0.0-7.0); Hematocrit 44.6 % (41.0-53.0); Hemoglobin 15.2 g/dL (13.5-17.5); Lymphocytes # (auto) 0.9 10 ^3/uL (0.4-5.4); Lymphocytes % (auto) 8.9 % (10.0-50.0); Mean Corpuscular Hgb Conc. 34.1 g/dL (32.0-36.0); Mean Corpuscular Volume 90.8 fL (80.0-100.0); Monocytes # (auto) 1.2 10 ^3/uL (0-1.3); Monocytes % (auto) 11.8 % (0.0-12.0); Neutrophils # (auto) 7.7 10 ^3/uL (1.6-8.6); Neutrophils % (auto) 78.4 % (37.0-80.0); Platelet Count (auto) 172 10^3/uL (140-450); Red Blood Cells 4.91 10^6/uL (4.5-5.90); Red Cell Distribution Width 13.7 % (11.8-14.3); White Blood Cell 9.8 10^3/uL (4.4-10.8)
[2024-11-26 06:56] LABS: Anion Gap 11 (5-15); Calcium 8.8 mg/dL (8.7-10.4); Carbon Dioxide 23 mmol/L (20-31); Chloride 104 mmol/L (98-107); Sodium 138 mmol/L (136-145)
[2024-11-26 07:02] LABS: BUN/Creatinine Ratio 9.2 (10.0-20.0); Blood Urea Nitrogen 9 mg/dL (9-23); Glucose 86 mg/dL (74-106)
--- NOTE | 2024-11-26 07:21 | DVH ---
EXAM: XR Abdomen, 1 View CLINICAL INDICATION: Left ureteral stent TECHNIQUE: Frontal supine view of the abdomen/pelvis. COMPARISON: XY KUB ABDOMEN SINGLE VIEW on DOS: 11/25/24, XY KUB ABDOMEN SINGLE VIEW on DOS: 11/25/24, XY KUB ABDOMEN SINGLE VIEW on DOS: 11/02/24 FINDINGS: GASTROINTESTINAL TRACT: Fecal retention in the colon consistent with constipation. No dilation. ORGANS: Indwelling double-J left ureteral stent. Portable 6 mm calculus of the inferior left renal pole. BONES/JOINTS: Unremarkable. No acute fracture. OTHER FINDINGS: . . IMPRESSION: 1. Indwelling double-J left ureteral stent. Portable 6 mm calculus of the inferior left renal pole. 2. Fecal retention in the colon consistent with constipation.
--- NOTE | 2024-11-26 10:28 | DVHPN2 ---
Subjective Reports Dysuria. Minimal urine output after Shirley removal. Reviewed: Care Plan, H&P, Labs, Medications Changes from previous H/P or p: Changes General: Per HPI Eyes: No Pain, No Vision change, No Conjunctivae inflammation, No Eyelid inflammation, No Other, No Redness ENT: No Ear pain, No Ear discharge, No Nose pain, No Nose discharge, No Nose congestion, No Mouth pain, No Mouth swelling, No Throat pain, No Throat swelling, No Other Cardiovascular: No Chest Pain, No Palpitations, No Orthopnea, No Paroxysmal Noc. Dyspnea, No Edema, No Lt Headedness, No Other Respiratory: No Cough, No Dry, No Shortness of breath, No SOB with excertion, No Wheezing, No Hemoptysis, No Pleuritic Pain, No Sputum, No Other Genitourinary: Dysuria, Hematuria Musculoskeletal: No other, No neck pain, No shoulder pain, No arm pain, No back pain, No hand pain, No leg pain, No foot pain Skin: No Rash, No Lesions, No Jaundice, No Bruising, No Other Objective Vitals Vital Signs Date Time Temp Pulse Resp B/P (MAP) Pulse Ox O2 Delivery O2 Flow Rate FiO2 11/26/24 09:21 128/81 11/26/24 09:20 76 11/26/24 09:00 97.9 16 95 97.9 11/25/24 20:00 Room Air* 0 21 Intake/Output Intake and Output 11/26/24 07:00 Intake Total 350 ml Output Total 300 ml Balance 50 ml Intake Oral 200 ml IV Total 150 ml Output Urine Total 300 ml Exam Assessed in the preop. General Appearance: Alert, Oriented X3, Cooperative, No acute distress HEENT: Atraumatic, PERRLA Lungs: Clear to auscultation, Normal air movement Cardiovascular: Normal S1, Normal S2 Abdomen: Normal bowel sounds, Soft, No tenderness, No hepatospenomegaly Musculoskeletal: Normal sensory function, Normal motor function Neuro: Normal gait, Normal speech Skin: Dry, Intact Psych/Mental Status: Mental status NL, Mood NL Medications Current Medications Medications Dose Ordered Sig/Adán Route Start Time Stop Time Status Last Admin Dose Admin Nitroglycerin 0.4 mg Q5MINP PRN SL 11/24/24 16:15 Amlodipine Besylate 5 mg DAILY PO 11/25/24 10:00 11/26/24 09:21 5 MG Atorvastatin Calcium 40 mg HS PO 11/24/24 22:00 11/25/24 21:31 40 MG Metoprolol Succinate 25 mg DAILY PO 11/25/24 10:00 11/26/24 09:20 25 MG Sodium Chloride 1,000 ml @ 75 mls/hr [id number] IV 11/24/24 16:15 11/26/24 09:21 75 MLS/HR Morphine Sulfate 1 mg Q4HPRN PRN IV 11/24/24 16:15 11/25/24 15:33 1 MG Acetaminophen/ Hydrocodone Bitart 1 tab Q6HPRN PRN PO 11/24/24 16:15 11/25/24 21:31 1 TAB Acetaminophen 500 mg Q8HP PRN PO 11/24/24 16:15 Ondansetron HCl 4 mg Q6HP PRN IV 11/24/24 16:15 Ceftriaxone Sodium 50 ml @ 100 mls/hr DAILY@09 IV 11/24/24 16:30 11/26/24 09:21 100 MLS/HR Laboratory Results Laboratory Tests 11/26/24 05:22 Chemistry Test 11/26/24 05:22 Calcium Level 8.8 mg/dL (8.7-10.4) Urinalysis Test 11/24/24 10:48 Urine Color Light-red (Yellow) Urine Clarity Turbid (Clear) H Urine pH 6.0 (5.0-9.0) Urine Specific [place] 1.010 (1.001-1.035) Urine Protein 1+ (Negative) H Urine Ketones Negative (Negative) Urine Blood 3+ /uL (Negative) H Urine Nitrite Negative (Negative) Urine Bilirubin Negative (Negative) Urine Urobilinogen Normal mg/dL (Negative) Urine Leukocyte Esterase 2+ /uL (Negative) Urine RBC 2053 /hpf (0 - 3) Urine WBC Clumps Present /hpf (None Seen) Urine Microscopic WBC 260 /HPF (0-3) H Urine Squamous Epithelial Cells None seen /hpf (<5) Urine Bacteria Few /hpf (None Seen) H Urine Mucus Few (None Seen) Urine Glucose Normal mg/dL (Normal) Microbiology Microbiology Date/Time Source Procedure Growth Status 11/24/24 22:00 Nose MRSA Screen - Final Complete Labs and/or images reviewed: Labs reviewed by me, Image(s) reviewed by me Assessment/Plan Assessment/Plan Impression: -hematuria -bladder cancer -primary hypertension -obstructive uropathy with left renal calculi, status post ureter placement -nicotine dependence -obstructive uropathy, status post cystoscopy with bladder tumor removal, ureter stent exchange, and laser of nephrolithiasis Plan: Events: No events overnight. Discussed case with Dr. Woodruff yesterday. Possible discharge today if patient is able to void without increase residual or gross hematuria. -urology consultation : Recommendations appreciated -gentle IV hydration -CT scan of the abdomen and pelvis -IV antibiotic therapy: Rocephin -continue home antihypertensives Total time spent with patient discussing and formulating plan of care: 35 minutes. This medical document was created using an electronic medical record system with [employer] dictation system. Although this document has been carefully reviewed, there may still be some phonetic and typographical errors. These areas are purely typographical due to imperfections of the software programs, and do not reflect any compromise in the patient's medical care. Plan discussed with: Patient, Other (RN) My Orders Orders - BRUNILDA SANTO NP Procedure Category Date Status Time Kub Abdomen Single XY 11/25/24 Resulted View 13:13 C Arm Fluoroscopy Up XY 11/25/24 Resulted To 60min 13:14 Date of Service: November 26, 2024 Billing Provider: BRUNILDA SANTO NP Common Visit Codes: [id number] INP/OBS CARE(HIGH) BRUNILDA SANTO NP November 26, 2024 10:28
[2024-11-26] MEDS: TAMSULOSIN HYDROCHLORIDE 0.4 MG CAP PO ONE (14:10)
[2024-11-26] MEDS ORDERED: CIPR500T4 PO (16:17)
[2024-11-27] MEDS ORDERED: TAMSULOSIN HYDROCHLORIDE 0.4 MG CAP PO SCH (18:00)
== END 2024-11-26 17:00 | disposition home or self-care (01) | DRG 657 ==
LOC: ER 10:11 → OVERFLOW 16:15 → CENTRAL 21:23
PROVIDERS: ADMIT Nurse Practitioner Acute Care; ATTEND Nurse Practitioner Acute Care
PROC: 0T5B8ZZ Destruction of Bladder, Via Natural or Artificial Opening Endoscopic (ICD-10-PCS; 2024-11-25)
PROC: 0TBB8ZZ Excision of Bladder, Via Natural or Artificial Opening Endoscopic (ICD-10-PCS; 2024-11-25)
PROC: 0TP98DZ Removal of Intraluminal Device from Ureter, Via Natural or Artificial Opening Endoscopic (ICD-10-PCS; 2024-11-25)
PROC: 0TC78ZZ Extirpation of Matter from Left Ureter, Via Natural or Artificial Opening Endoscopic (ICD-10-PCS; 2024-11-25)
PROC: 0T9B8ZZ Drainage of Bladder, Via Natural or Artificial Opening Endoscopic (ICD-10-PCS; 2024-11-25)
PROC: 0TC18ZZ Extirpation of Matter from Left Kidney, Via Natural or Artificial Opening Endoscopic (ICD-10-PCS; 2024-11-25)
PROC: 0T778DZ Dilation of Left Ureter with Intraluminal Device, Via Natural or Artificial Opening Endoscopic (ICD-10-PCS; principal; 2024-11-25 11:11)
DX: C67.9 Malignant neoplasm of bladder, unspecified (principal); N20.2 Calculus of kidney with calculus of ureter; N13.9 Obstructive and reflux uropathy, unspecified; I10 Essential (primary) hypertension; F17.200 Nicotine dependence, unspecified, uncomplicated; R31.0 Gross hematuria; E78.5 Hyperlipidemia, unspecified; Z82.49 Family history of ischemic heart disease and other diseases of the circulatory system; Z85.46 Personal history of malignant neoplasm of prostate; Z85.51 Personal history of malignant neoplasm of bladder; Z87.442 Personal history of urinary calculi; Z79.82 Long term (current) use of aspirin; Z79.899 Other long term (current) drug therapy; Z79.2 Long term (current) use of antibiotics
CPT/HCPCS: 36415; 71045; 74018; 74176; 76000; 80048; 81001; 85014; 85018; 85025; 85610; 85730; 86850; 86900; 86901; 87081; 96360; A4344; G0378; J2704

== ENCOUNTER 2024-12-02 08:27 | Day surgery (SDC) | payer MEDICARE ==
[2024-11-28 12:54] LABS: Urine Bacteria FEW /hpf (None Seen); Urine Blood 3+ /uL (Negative); Urine Budding Yeast OCCASIONAL /hpf (None Seen); Urine Clarity Turbid (Clear); Urine Color Yellow (Yellow); Urine Mucus FEW (None Seen); Urine Protein, UAD 2+ (Negative); Urine Specific Gravity 1.019 (1.001-1.035); Urine Squamous Epithelial Cell None Seen /hpf (<5); Urine Urobilinogen Normal (Negative); Urine WBC 66 /HPF (0-3); Urine pH 5.5 (5.0-9.0)
[2024-11-28 12:55] LABS: Basophils # (auto) 0 10 ^3/uL (0-0.2); Basophils % (auto) 0.8 % (0.0-2.0); Eosinophils # (auto) 0.2 10 ^3/uL (0-0.8); Eosinophils % (auto) 3.3 % (0.0-7.0); Hemoglobin 14.9 g/dL (13.5-17.5); Lymphocytes # (auto) 1.4 10 ^3/uL (0.4-5.4); Lymphocytes % (auto) 23.6 % (10.0-50.0); Mean Corpuscular Hgb Conc. 34.6 g/dL (32.0-36.0); Mean Corpuscular Volume 89.7 fL (80.0-100.0); Monocytes # (auto) 0.8 10 ^3/uL (0-1.3); Monocytes % (auto) 14.1 % (0.0-12.0); Neutrophils # (auto) 3.5 10 ^3/uL (1.6-8.6); Neutrophils % (auto) 58.2 % (37.0-80.0); Nucleated Red Blood Cells % 0.1 %; Platelet Count (auto) 162 10^3/uL (140-450); Red Blood Cells 4.79 10^6/uL (4.5-5.90); Red Cell Distribution Width 13.7 % (11.8-14.3)
[2024-11-28 13:08] LABS: INR 1.05 (0.9-1.15); Partial Thromboplastin Time 29.3 SEC (24.5-34.5); Prothrombin Time 11.1 sec (9.3-11.8)
[2024-11-28 13:13] LABS: Alanine Aminotransferase 11 U/L (7-40); Albumin 4.3 g/dL (3.2-4.8); Alkaline Phosphatase 73 U/L (46-116); Anion Gap 10 (5-15); Aspartate Aminotransferase 15 U/L (13-40); Carbon Dioxide 25 mmol/L (20-31); Chloride 106 mmol/L (98-107); Glucose 91 mg/dL (74-106); Potassium 3.6 mmol/L (3.5-5.1); Sodium 141 mmol/L (136-145); Total Protein 6.7 g/dL (5.7-8.2)
[2024-11-28 13:14] LABS: Bilirubin, Total 1.1 mg/dL (0.2-1.0)
[2024-11-28 13:15] LABS: BUN/Creatinine Ratio 11.4 (10.0-20.0); Blood Urea Nitrogen 12 mg/dL (9-23)
[~2024-12-02] VITALS: Ht 177.8 cm; Wt 93.0 kg
[~2024-12-02 08:27] MED LIST changes: +ASPI1TAB20 PO; -ASPI325T6 PO; -CIPR-173 PO; +CIPR500T4 PO; -HYDR-4902 PO; -PANT1INJ3 PO; +PANT40TA2 PO
[2024-12-02] MEDS ORDERED: CIPROFLOXACIN 400MG/200ML 200 ML IV ONE (08:46)
[2024-12-02] MEDS ORDERED: fentaNYL CITRATE 100 MCG/2 ML VL ONE (08:57)
[2024-12-02] MEDS ORDERED: MIDAZOLAM HCL 2MG/2ML 2ml VIAL (1mg/ml) ONE (08:57)
[2024-12-02] MEDS ORDERED: PROPOFOL 10 MG/ML 20 ML IV ONE (09:23)
[2024-12-02] MEDS ORDERED: DexAMETHasone SOD PHOS 10MG/1ML VIAL INJ ONE (09:23)
[2024-12-02] MEDS ORDERED: ONDANSETRON HCL 4 MG/2 ML VIAL ONE (09:23)
[2024-12-02] MEDS ORDERED: ETOMIDATE (2MG/ML) 20ML VIAL IV ONE (09:23)
[2024-12-02] MEDS: IOHEXOL 300 MG/ML 100ML BOTTLE IJ ONE (09:58)
[2024-12-02 10:20] VITALS: PULSE 90; RESP 12; TEMP 97.1; O2SAT 94
[2024-12-02 10:30] VITALS: PULSE 73; RESP 12; O2SAT 99
[2024-12-02] MEDS ORDERED: ePHEDrine SULFATE 50 MG/ML AMP IV PRN (10:30)
[2024-12-02] MEDS ORDERED: MORPHINE SULFATE 4 MG/ML SYR/VIAL IV PRN (10:30)
[2024-12-02] MEDS ORDERED: ONDANSETRON HCL 4 MG/2 ML VIAL IV ONE (10:30)
[2024-12-02] MEDS ORDERED: MIDAZOLAM HCL 2MG/2ML 2ml VIAL (1mg/ml) IV PRN (10:30)
[2024-12-02] MEDS ORDERED: HYDROmorphone HCL 2 MG/ML VL/or syr IV PRN (10:30)
[2024-12-02] MEDS ORDERED: hydrALAZINE HCL 20 MG/ML VL IV PRN (10:30)
--- NOTE | 2024-12-02 10:49 | DVHNC2 ---
Procedure - OPERATIVE REPORT Pre-op. Diagnosis: Kidney Stone - Left 6 mm lower pole stone Post-op. Diagnosis: Same as pre-op diagnosis Operation: Left ureteroscopy/pyeloscopy, laser lithotripsy with CVAC system Cystoscopy with left ureteral stent removal Anesthesia: General Indications: Patient with residual 6 mm left lower pole renal stone after ESWL and URSLL. The indications, risks, complications, alternatives and benefits were discussed. All questions were encouraged and answered. Patient is aware of risks/complications including but not limited to infection, bleeding, persistent pain, possible ureteral injury/ureteral stricture requiring additional surgical management, urethral injury, urethral stricture and meatal stenosis. Details of Procedure: After obtaining the consent, patient was taken to OR suite and underwent general anesthesia. Preop antibiotic was given. Timeout was performed and deemed to be correct. With the patient positioned in the lithotomy, the area of the genitalia prepped and draped in usual sterile fashion. 22 F Cystoscope was used to access the urethra and bladder. A sensor tip guide wire was advanced through the scope into the left ureter all the way to the collecting system under fluoroscopic control. I advanced 11x13 Fr 36 cm access sheet over the working wire all the way to the proximal ureter under fluoroscopy control, then the inner sheet and the working wire was removed. The CVAC flexible ureteroscope was advanced through the access sheet. The stones were visualized. Now using a 200 micron laser fiber the stone was blasted into small fragments and suctioned out while in dusting mode. Ureteroscope was then removed. Ureteral sheath was then removed. Patient was placed in supine position in the OR table. Anesthesia was reversed, patient was extubated and transferred awake and in stable conditions to recovery room. Specimens: renal stone fragments Complications: None PILI REBOLLEDO MD December 02, 2024 10:49
--- NOTE | 2024-12-02 10:50 | DVHDS2 ---
New Physician D'charge PN Admitting Diagnosis Admitting Diagnosis Left renal calculus Left ureteral stent Discharge Diagnosis Same Operations or Procedures Left ureteroscope laser lithotripsy with renal evacuation Cystoscopy with stent removal Reason(s) For Hospitalization Surgery Treatment Plan Discharge Condition of Discharge Good Disposition Home Discharge Instructions Diet: Regular Activity: No Restrictions, As Tolerated Activity comment: As tolerated Medications: Given Follow Up Care Follow Up/Referral: One-month follow-up Discharge Statement: "Patient was advised to return to the ER or call 911 if any headaches, dizziness, shortness of breath, chest pain, abdominal pain, bleeding, fevers, or worsening of medical condition. Patient was counseled about treatment plan, medications, possible side effects, patientverbalized understanding. All questions were answered to the best of my ability. This discharge took greater then 30 minutes in planning, reviewing documentation, counseling the patient, and discussing with other team members." PILI REBOLLEDO MD December 02, 2024 10:50
[2024-12-02 11:15] VITALS: BP 130/86; PULSE 65; RESP 14; O2SAT 99
--- NOTE | 2024-12-02 12:07 | DVH ---
C-ARM FLUOROSCOPY: PROCEDURE: left lithotripsy FLUOROSCOPY TIME: 60 sec FINDINGS: Spot intraoperative C arm radiographs demonstrating left lithotripsy . IMPRESSION: Please refer to surgical report for detailed findings.
--- NOTE | 2024-12-02 12:13 | DVH ---
C-ARM FLUOROSCOPY: PROCEDURE: Lithotripsy FLUOROSCOPY TIME: 60 sec FINDINGS: Spot intraoperative C arm radiographs demonstrating Lithotripsy . IMPRESSION: Please refer to surgical report for detailed findings.
== END 2024-12-02 11:30 | disposition home or self-care (01) ==
LOC: SUR 08:27
PROVIDERS: ATTEND Urology
DX: N20.2 Calculus of kidney with calculus of ureter (principal); I10 Essential (primary) hypertension; I25.10 Atherosclerotic heart disease of native coronary artery without angina pectoris; J44.9 Chronic obstructive pulmonary disease, unspecified; K44.9 Diaphragmatic hernia without obstruction or gangrene; E03.9 Hypothyroidism, unspecified; E78.5 Hyperlipidemia, unspecified; E66.9 Obesity, unspecified; Z68.34 Body mass index [BMI] 34.0-34.9, adult; Z79.899 Other long term (current) drug therapy; Z85.46 Personal history of malignant neoplasm of prostate; Z98.890 Other specified postprocedural states; Z87.891 Personal history of nicotine dependence
CPT/HCPCS: 36415; 52353; 74018; 80053; 81001; 82360; 85025; 85610; 85730; 87086; 88300; C1894; J0744; J1100; J2250; J2405; J2704; J3010; Q9967; 76000